=== PATIENT | female | born 1955 | race Two or more races ===

== ENCOUNTER 2017-01-11 11:00 | Inpatient (IN) | payer OTHER ==
[~2017-01-11] VITALS: Ht 160 cm; Wt 35.8 kg
--- NOTE | 2017-01-11 11:01 | NUR ---
GLF- 2 days ago; c/o left hip pain; denies KO. unable to ambulate past 2 days after fall. gowned pt. placed on monitor. awaiting md order
--- NOTE | 2017-01-11 11:24 | NUR ---
EKG IN PROGRESS
--- NOTE | 2017-01-11 11:24 | NUR ---
FOUR SLIDE MACHINE OPERATOR AT BEDSIDE
[2017-01-11 11:30] LABS: BASOPHILS % (AUTO) 0.8 % (0.0-2.0); EOSINOPHILS % (AUTO) 0.2 % (0.0-6.0); HEMATOCRIT 39 % (33-45); HEMOGLOBIN 12.8 g/dL (11.5-14.8); LYMPHOCYTES # (AUTO) 1.9 /CMM (0.8-4.8); LYMPHOCYTES % (AUTO) 37.2 % (20.0-44.0); MEAN CORPUSCULAR HEMOGLOBIN 29 PG (26.0-33.0); MEAN CORPUSCULAR HGB CONC 33 g/dl (31.0-36.0); MEAN CORPUSCULAR VOLUME 88 fL (82-100); MONOCYTES # (AUTO) 0.4 /CMM (0.1-1.30); MONOCYTES % (AUTO) 8.3 % (2.0-12.0); NEUTROPHILS # (AUTO) 2.9 /CMM (1.8-8.9); NEUTROPHILS % (AUTO) 53.5 % (43.0-81.0); PLATELET COUNT (AUTO) 420 /CMM (150-450); RDW COEFFICIENT OF VARIATION 13.6 (11.5-15.0); RED BLOOD CELL COUNT(AUTO) 4.43 MIL/uL (4.0-5.2); WHITE BLOOD COUNT (AUTO) 5.2 K/uL (4.3-11.0)
[2017-01-11] MEDS ORDERED: IV NS 0.9% 1,000 ML BAG IV ONE (11:30)
--- NOTE | 2017-01-11 11:31 | NUR ---
RFA #20 IV ACCESS. BLOOD SAMPLE COLLECTED SENT TO LAB
--- NOTE | 2017-01-11 11:31 | NUR ---
PT TAKEN TO CT VIA PREMA
--- NOTE | 2017-01-11 11:32 | NUR ---
XR TECH AT BEDSIDE.
--- NOTE | 2017-01-11 11:33 | NUR ---
PATIENT TAKEN TO CT VIA STRETCHER
--- NOTE | 2017-01-11 11:39 | NUR ---
PATIENT RETURNED FROM CT
[2017-01-11 11:40] LABS: CALCIUM, SERUM 9.3 mg/dL (8.5-10.1); CARBON DIOXIDE 28 mmol/L (21-32); CHLORIDE 100 mmol/L (98-107); GLUCOSE 79 mg/dL (74-106); POTASSIUM 4.7 mmol/L (3.5-5.1); SODIUM SERUM 138 mmol/L (136-145); UREA NITROGEN, BLOOD 25 mg/dL (7-18)
[2017-01-11 11:43] LABS: INR 0.98 (0.87-1.13); PROTHROMBIN TIME 10.2 SECS (9.5-12.7)
[2017-01-11 11:46] LABS: ALANINE AMINOTRANSFERASE 10 U/L (12-78); ALBUMIN 3.2 g/dL (3.4-5.0); ALKALINE PHOSPHATASE 58 U/L (46-116); ASPARTATE AMINOTRANSFERASE 28 U/L (15-37); BILIRUBIN,DIRECT 0.6 mg/dL (0.0-0.2); BILIRUBIN,TOTAL 1.2 mg/dL (0.2-1.0); LIPASE 67 U/L (73-393); TOTAL PROTEIN, SERUM 7.5 g/dL (6.4-8.2)
[2017-01-11 12:09] LABS: TROPONIN I < 0.017 ng/mL (0.00-0.056)
--- NOTE | 2017-01-11 12:10 | NUR ---
URINE SAMPLE COLLECTED SENT TO LAB
--- NOTE | 2017-01-11 12:11 | NUR ---
DR REDDY ON THE PHONE WITH THE GENERAL STUDIES PROGRAM CHAIR ORTHO ELSA ESCALERA
--- NOTE | 2017-01-11 12:17 | NUR ---
Superior pubic ramus
[2017-01-11 12:31] LABS: APPEARANCE,URINE Clear (CLEAR); BILIRUBIN,URINE SMALL (NEGATIVE); BLOOD, URINE Trace-lysed Ery/uL (NEGATIVE); COLOR,URINE Yellow (YELLOW); KETONES,URINE 15 (NEGATIVE); LEUKOCYTE ESTERASE ,URINE Small (NEGATIVE); NITRITE, URINE Negative (NEGATIVE); PH,URINE 5.5 (5.0-8.0); PROTEIN,URINE Negative (NEGATIVE); UGLUCOSE Negative (NEGATIVE); UROBILINOGEN,URINE 0.2 EU/dL (0.2)
[2017-01-11 12:44] LABS: BACTERIA,URINE Many /HPF (None Seen); RBC,URINE 0-2 /HPF (0-2); SQUAMOUS EPITHELIAL CELL,UR Moderate /HPF (None Seen)
[2017-01-11] MEDS ORDERED: IV NS 0.9% 1,000 ML IV PRN ×2 (13:14→14:00)
--- NOTE | 2017-01-11 13:15 | NUR ---
REPORT GIVEN TO RNVIKTOR. PATIENT TO BE ADMITT[place] [facility] [place] [facility]
[2017-01-11] MEDS ORDERED: DEXTROSE 50%-WATER 50 ML DISP.SYRIN IV PRN ×2 (13:30→14:00)
[2017-01-11] MEDS ORDERED: MORPHINE SULFATE INJ 2 MG/ML DISP.SYRIN IV PRN (13:30)
[2017-01-11] MEDS ORDERED: ONDANSETRON HCL/PF 4 MG/2 ML VIAL IVP PRN ×2 (13:30→14:00)
[2017-01-11] MEDS ORDERED: INSULIN REGULAR, HUMAN 100 UNIT/ML 3 ML VIAL SQ PRN (13:30)
[2017-01-11] MEDS ORDERED: Z GUARD REMEDY 2 OZ OINT TP PRN ×2 (13:30→14:00)
[2017-01-11] MEDS ORDERED: ZOLPIDEM TARTRATE 5 MG TABLET PO PRN ×2 (13:30→14:00)
[2017-01-11] MEDS ORDERED: ACETAMINOPHEN 325 MG TABLET PO PRN ×2 (13:30→14:00)
[2017-01-11] MEDS ORDERED: *INSULIN REGULAR(HUMULIN R)HUM 100 UNIT/ML VIAL SQ PRN (13:30)
[2017-01-11] MEDS ORDERED: MAG HYDROX/AL HYDROX/SIMETH 30 ML UDC PO PRN ×2 (13:30→14:00)
[2017-01-11] MEDS ORDERED: HYDROCODONE/APAP 5/325MG 1 EACH TABLET PO PRN (13:30)
[2017-01-11] MEDS ORDERED: MAGNESIUM HYDROXIDE 30 ML UDC PO PRN ×2 (13:30→14:00)
--- NOTE | 2017-01-11 13:45 | NUR ---
PATIENT TRANSPORTED TO [facility] FOR ADMISSION VIA STRETCHER, WITH EMT.
--- NOTE | 2017-01-11 13:46 | NUR ---
DR BLACKWELL CALLED. TRANSFERRED CALL TO DR REDDY
[2017-01-11 14:00] VITALS: BP 119/79
--- NOTE | 2017-01-11 14:00 | NUR ---
MS RN OPENING RECEIVED PATIENT A/OX4 FAROESE SPEAKING ONLY; FAMILY AT BEDSIDE. PATIENT DENIES ANY PAIN AT THIS TIME, NO SOB, DIFFICULTY BREATHING. PATIENT DENIES ANY HOME MEDICATIONS. MD AWARE OF ADMISSION. PATIENT REPOSITIONED FOR INCREASED COMFORT AND CALL LIGHT IN REACH, BED LOWERED AND LOCKED, RAILS UPX3 FOR SAFETY. WILL ROUND Q2H OR LESS PER NEEDS. DR ARELLANO/ AMANDA AWARE OF CONSULT ALREADY.
--- NOTE | 2017-01-11 15:00 | NUR ---
MS RN NOTES MD BLACKWELL AWARE OF PATIENT WEIGHT LOSS, N/V WITH FOOD AND DECREASED BM. PT HAS A HX OF ACCIDENTAL BLEACH CONSUMPTION AND SINCE THEN UNABLE TO TOLERATE MUCH OF A DIET.
[2017-01-11 16:00] VITALS: BP 116/84
--- NOTE | 2017-01-11 17:10 | NUR ---
MS RN NOTES BS LOW; NOT ENOUGH TO INITIATE PROTOCOL. INFORMED MD NO DIET ORDERED AND IF WE CAN GET IVF WITH SUGAR PATIENT DOES NOT HAVE GOOD ORAL INTAKE FOR THE LAST YEAR
--- NOTE | 2017-01-11 17:17 | NUR ---
MS RN NOTES PER MD [facility]
[2017-01-11] MEDS: BLOOD SUGAR DIAGNOSTIC 1 EACH STRIP VI SCH ×2 (17:24→22:49)
[2017-01-11] MEDS ORDERED: BLOOD SUGAR DIAGNOSTIC 1 EACH STRIP VI SCH (17:30)
--- NOTE | 2017-01-11 17:30 | NUR ---
MS RN NOTE DEXTROSE IV GIVEN PATIENT IS NOT EATING AND ON NS ONLY.
--- NOTE | 2017-01-11 17:40 | NUR ---
MS RN NOTES PER MD OK TO CHANGE IVF TO D51/2NS AT 75/HR
[2017-01-11] MEDS: IV D5/0.45 NACL 1,000 ML IV PRN (18:22)
--- NOTE | 2017-01-11 18:50 | NUR ---
MS RN CLOSING PATIENT STABLE NO COMPLICATIONS NO CHANGES. ALL DUE MEDS GIVEN AND ALL NEEDS MET. PATIENT DENIES PAIN STILL AT THIS TIME AND TOLERATING REPOSITIONING. CARE WILL BE ENDORSED TO RN FOR JOVANA. RAILS UPX3 FOR SAFETY AND BED LOWERED AND LOCKED.
--- NOTE | 2017-01-11 19:25 | NUR ---
MS/RN NOTES RECEIVED PT. LYING IN BED RESTING. PT. IS EASILY AROUSABLE TO NAME. AWAKE, ALERT AND ORIENTED X3. BREATHING EVEN AND UNLABORED ON ROOM AIR. NO SOB, RESPIRATORY DISTRESS OR COMPLAINTS OF PAIN NOTED AT THIS TIME. PT. WITH RIGHT FOREARM 20 GAUGE PERIPHERAL IV PRESENT, PATENT AND INTACT ADMINISTERING TO PT. D5 1/2 NS @ 75 ML/HR. BED IN LOWEST POSITION, CALL LIGHT WITHIN REACH, WILL CONTINUE TO MONITOR.
--- NOTE | 2017-01-11 19:55 | NUR ---
MS/RN NOTES RECEIVED CALL FROM ORTHO CONSULT MICHELLE MARTINEZ HE WILL COME AND SEE THE PT. TOMORROW MORNING. NEW ORDER: PT. WILL BE NPO AT MIDNIGHT. WILL CARRY OUT ORDERS. WILL CONTINUE TO MONITOR.
[2017-01-11 20:06] VITALS: BP 130/84
[2017-01-11] MEDS: *INSULIN REGULAR(HUMULIN R)HUM 100 UNIT/ML VIAL SQ PRN (22:47)
--- NOTE | 2017-01-11 22:57 | NUR ---
MS/RN NOTES GAVE REPORT TO FLACO CHO ENDORSED PT. TO HER. PT. IS LYING IN BED RESTING. BREATHING EVEN AND UNLABORED ON ROOM AIR. NO SOB, RESPIRATORY DISTRESS OR COMPLAINTS OF PAIN NOTED AT THIS TIME. PT. WITH RIGHT FOREARM 20 GAUGE PERIPHERAL IV PRESENT, PATENT AND INTACT ADMINISTERING TO PT. D5 1/2 NS @ 75 ML/HR. ALL PT. NEEDS MET. BED IN LOWEST POSITION, CALL LIGHT WITHIN REACH, ENDORSED PT. TO FLACO CHO FOR CONTINUITY OF CARE.
--- NOTE | 2017-01-11 23:00 | NUR ---
MS RN NOTE REPORT RECEIVED FROM FLACO GUTHRIE. PATIENT STABLE. WILL CONTINUE TO MONITOR.
[2017-01-12] MEDS: PANTOPRAZOLE 40 MG TABLET.DR PO SCH (06:25)
[2017-01-12] MEDS: BLOOD SUGAR DIAGNOSTIC 1 EACH STRIP VI SCH ×4 (06:30→21:24)
--- NOTE | 2017-01-12 06:30 | NUR ---
MS RN NOTE PATIENT STABLE. BLOOD SUGAR 180. NO COVERAGE GIVEN. PATIENT IS NPO PER LALI BRAMBILA. WILL ENDORSE TO DAY SHIFT FOR JOVANA.
[2017-01-12] MEDS: IV D5/0.45 NACL 1,000 ML IV PRN (07:01)
[2017-01-12] MEDS ORDERED: PANTOPRAZOLE 40 MG TABLET.DR PO SCH (07:30)
--- NOTE | 2017-01-12 07:37 | NUR ---
MS/RN NOTES PATIENT RESTING IN BED WITH NO S/S OF DISTRESS/DISCOMFORT. DENIES PAIN, N/V AT THIS TIME. RESPIRATIONS EVEN AND UNLABORED, ON ROOM AIR. IV TO RIGHT FOREARM 20 GAUGE INFUSING D5 1/2 NS @ 75 ML/HR. ALL PT, NPO STATUS FOR POSSIBLE LEFT HIP FX SURGERY. SAFETY MEASURES RENDERED. SITTER AT BEDSIDE. BED IN LOWEST POSITION, CALL LIGHT WITHIN REACH. WILL CONTINUE TO MONITOR.
--- NOTE | 2017-01-12 09:01 | NUR ---
WOUND CARE CONSULT PATIENT SEEN AND SKIN ASSESSED. RECOMMENDATIONS MADE AND DISCUSSED WITH NURSING STAFF, AND ORDERS PLACED. RECOMMEND Q2H TURNING, HEEL FLOATING AND SUPPORTING ELBOWS ON PILLOWS. REDNESS ON HEELS RESOLVED. CARE PLAN IS PLACED. PATIENT IS ON ISOFLEX AIR MATRESS. PATIENT AWAITING ORTHO CONSULT. WILL CONTINUE TO FOLLOW PATIENT NEEDED. Addendum: 01/12/17 at 0904 by ELÍAS CUMMINGS RN Amended: Links added. Addendum: 01/12/17 at 0951 by ELÍAS CUMMINGS RN PER REVIEW OF PHOTOS, SACRAL ABRASION POA.
--- NOTE | 2017-01-12 12:06 | NUR ---
ms/rn notes 16 fr candelario cath inserted successfully with 700 clear yellow urine draining well. secured candelario with stat lock and hung bag belong level. Patient states to feel comfortable with no indications of pain or discomfort. patient ready for surgery.
--- NOTE | 2017-01-12 12:34 | NUR ---
Social service consult requested by Kaye García due to pt. having frequent falls. Pt. is a 61 year old female who was admitted to [facility] for frequent falls. SW met with pt. bedside. FLACO Peres was bedside to assist in translation since pt. is Yakut speaking. Pt. informed SW she resides at home with her , her son and her daughter. Pt. states she has support at home. Pt. informed SW that this was the first time she fell and denies having frequent falls. Pt. sates she hit the table while going to the backyard and fell. Pt. has had her big toe amputated at [facility] about a year ago which might lead to her unsteady gait. Pt. was ambulatory prior to fracturing her leg. Currently no social service needs are required at this time. SW is available if needed.
--- NOTE | 2017-01-12 15:24 | NUR ---
MS/RN NOTES 1200 BLOOD SUGAR 157MG/DL. NO INSULIN COVERAGE REQUIRED D/T NPO STATUS WITH PENDING SX
--- NOTE | 2017-01-12 18:43 | NUR ---
MS/RN NOTES PATIENT RESTING IN BED COMFORTABLE. NO SIGNIFICANT CHANGES NOTED, PATENT APPEARS CALM AND COMFORTABLE. 1700 BLOOD SUGAR 93 NO COVERAGE NEEDED, PATIENT RESUMED WITH CONSISTENT CARB DIET, ATE 100 PERCENT OF MEAL. PATIENT DENIED ANY PAIN OR DISCOMFORT. NO ACUTE DISTRESS NOTED. CURRENTLY SLEEPING RESTFULLY. SAFETY MEASURES RENDERED, CALL LIGHT PLACED WITHIN REACH. WILL ENDORSE CARE TO CHAIR CANER FOR JOVANA
--- NOTE | 2017-01-12 19:15 | NUR ---
RN NOTES RECEIVED PT AWAKE, HOB ELEVATED, NO SOB, NOT IN DISTRESS, ON ROOM AIR AND TOLERATED WELL. PT ALERT AND ORIENTED X3, DENIES ANY PAIN AND DISCOMFORT AT THIS TIME. IV ACCESS ON RIGHT FORE ARM PATENT AND INTACT. JALLOH CATH INTACT WITH CLEAR URINE OUT PUT NOTED. KEPT BED IN THE LOWEST POSITION LOCKED, SIDE RAILS UP WITH CALL LIGHT WITH IN REACH. WILL CONTINUE TO MONITOR PT.
[2017-01-12] MEDS: *INSULIN REGULAR(HUMULIN R)HUM 100 UNIT/ML VIAL SQ PRN (21:25)
--- NOTE | 2017-01-12 21:25 | NUR ---
RN NOTES PTM VERBALIZED SHE HAVEN'T HAD BOWEL MOVEMENT X 3 DAYS, MILK OF MAGNESIA 30ML GIVEN PO AND TOLERATED WELL. WILL CONTINUE TO MONITOR PT.
--- NOTE | 2017-01-12 21:25 | NUR ---
RN NOTES BLOOD SUGAR CHECKED 106 MG/DL, NO INSULIN COVERAGE PER SLIDING SCALE. PT ALERT AND ORIENTED, DENIES ANY PAIN AND DISCOMFORT. NO SIGNS OF HYPOGLYCEMIA NOTED. WILL CONTINUE TO MONITOR PT.
[2017-01-12 22:00] VITALS: BP 113/79
[2017-01-13] MEDS: INSULIN REGULAR, HUMAN 100 UNIT/ML 3 ML VIAL SQ PRN ×2 (06:31→18:27)
[2017-01-13] MEDS: BLOOD SUGAR DIAGNOSTIC 1 EACH STRIP VI SCH ×4 (06:31→21:30)
--- NOTE | 2017-01-13 06:31 | NUR ---
RN NOTES BLOOD SUGAR CHECKED 121 MG/DL, NO INSULIN COVERAGE PER SLIDING SCALE.
--- NOTE | 2017-01-13 07:10 | NUR ---
RECEIVED PT IN BED, AWAKE AND ALERT. NO SOB OR COMPLAINTS OF PAIN. BED IS IN LOW AND LOCKED POSITION, SIDE RAILS UP X2, AND CALL LIGHT IS IN REACH. WILL CONTINUE TO MONITOR.
[2017-01-13] MEDS: PANTOPRAZOLE 40 MG TABLET.DR PO SCH (07:30)
--- NOTE | 2017-01-13 07:33 | NUR ---
RN NOTES PT AWAKE, HOB ELEVATED, NO SOB, NOT IN DISTRESS, ON ROOM AIR AND TOLERATED WELL. VITAL SIGNS STABLE, AFEBRILE. NO COMPLAIN OF PAIN. NO EPISODE OF NAUSEA AND VOMITING. KEPT PT ON NPO FOR SCHEDULED SURGERY TODAY. ALL NEEDS ATTENDED. ENDORSED TO MORNING RN FOR CONTINUITY OF CARE.
[2017-01-13 08:00] VITALS: BP 130/79
[2017-01-13 08:19] LABS: BASOPHILS % (AUTO) 0.5 % (0.0-2.0); EOSINOPHILS % (AUTO) 0.5 % (0.0-6.0); HEMATOCRIT 33 % (33-45); HEMOGLOBIN 11.3 g/dL (11.5-14.8); LYMPHOCYTES # (AUTO) 1.4 /CMM (0.8-4.8); LYMPHOCYTES % (AUTO) 35.8 % (20.0-44.0); MEAN CORPUSCULAR HEMOGLOBIN 30 PG (26.0-33.0); MEAN CORPUSCULAR HGB CONC 34 g/dl (31.0-36.0); MEAN CORPUSCULAR VOLUME 87 fL (82-100); MONOCYTES # (AUTO) 0.4 /CMM (0.1-1.30); MONOCYTES % (AUTO) 9.8 % (2.0-12.0); NEUTROPHILS % (AUTO) 53.4 % (43.0-81.0); PLATELET COUNT (AUTO) 278 /CMM (150-450); RED BLOOD CELL COUNT(AUTO) 3.83 MIL/uL (4.0-5.2); WHITE BLOOD COUNT (AUTO) 3.8 K/uL (4.3-11.0)
[2017-01-13 09:01] LABS: CALCIUM, SERUM 8.1 mg/dL (8.5-10.1); CREATININE 0.8 mg/dL (0.6-1.3); POTASSIUM 3.8 mmol/L (3.5-5.1)
[2017-01-13] MEDS ORDERED: BACITRACIN 50000 UNITS/VIAL ONE (11:44)
[2017-01-13] MEDS ORDERED: MIDAZOLAM HCL 2 MG/2ML VIAL ONE (12:08)
[2017-01-13] MEDS ORDERED: FENTANYL PF 100MCG/2ML AMPUL ONE (12:08)
[2017-01-13] MEDS ORDERED: SUCCINYLCHOLINE CHLORIDE 20 MG/ML VIAL ONE (12:09)
[2017-01-13] MEDS ORDERED: METOCLOPRAMIDE HCL 10 MG/2 ML VIAL ONE (12:09)
[2017-01-13] MEDS ORDERED: BUPIVACAINE 0.5 % PF 150 MG/30 ML VIAL ONE (12:46)
[2017-01-13 14:15] VITALS: BP 110/82
--- NOTE | 2017-01-13 14:40 | NUR ---
ACCUCHECK WAS NOT DONE BECAUSE PT WAS IN THE OR. ACCU-CHECK DONE IN THE OR AT 1330, LEVEL AT 101. NO NEED FOR COVERAGE. PT IS BACK ON UNIT POST-OP IN STABLE CONDITION.
[2017-01-13 15:10] VITALS: BP 106/77
[2017-01-13 16:00] VITALS: BP_SYST 108; BP_SYST 130; BP_DIAS 72; BP_DIAS 77; BP_DIAS 79
[2017-01-13] MEDS: HYDROCODONE/APAP 5/325MG 1 EACH TABLET PO PRN (16:50)
[2017-01-13] MEDS: IV D5/0.45 NACL 1,000 ML IV PRN (17:22)
--- NOTE | 2017-01-13 18:38 | NUR ---
PT IS AWAKE IN BED IN SEMI FOWLERS POSITION. PT HAS EVEN RESPIRATIONS AND NO SOB ON RA, SATING 99. PT WAS GIVEN NORCO AND ZOFRAN AND CURRENTLY STATES NO PAIN OR NAUSEA. IV ON RFA INTACT AND PATENT, RUNNING D5 1/2 NS AT 125 ML/HR. HIP SURGERY DRESSING IS CLEAN AND DRY, ICE APPLIED TO AREA. BED IS IN LOW AND LOCKED POSITION, SIDE RAILS UP X2, CALL LIGHT IS IN REACH, AND SITTER IS AT BEDSIDE. WILL ENDORSE TO OPTICAL INSTRUMENT ASSEMBLER RN FOR CONTINUITY OF CARE.
--- NOTE | 2017-01-13 19:20 | NUR ---
RN NOTES RECEIVED PT AWAKE, HOB ELEVATED, NO SOB, NOT IN DISTRESS, ON ROOM AIR AND TOLERATED WELL. PT ALERT AND ORIENTED X3, DENIES PAIN, NAUSEA AND VOMITING. IV ACCESS ON RIGHT FORE ARM PATENT AND INTACT. PT IS S/P LEFT HIP ORIF, DRESSING INTACT, DRY AND CLEAN. JALLOH CATH INTACT WITH CLEAR URINE OUT PUT NOTED. KEPT BED IN THE LOWEST POSITION LOCKED, SIDE RAILS UP WITH CALL LIGHT WITH IN REACH. WILL CONTINUE TO MONITOR PT.
[2017-01-13] MEDS: ANCEF 1 GM/50 ML D5W IV SCH ×2 (21:23)
[2017-01-13] MEDS: *INSULIN REGULAR(HUMULIN R)HUM 100 UNIT/ML VIAL SQ PRN (21:33)
--- NOTE | 2017-01-13 21:33 | NUR ---
RN NOTES BLOOD SUGAR CHECKED 202 MG/DL, 4 UNITS OG REGULAR INSULIN GIVEN SUBCU. WILL CONTINUE TO MONITOR.
[2017-01-13 22:00] VITALS: BP 103/77
[2017-01-14] MEDS: IV D5/0.45 NACL 1,000 ML IV PRN ×2 (02:14→17:19)
[2017-01-14] MEDS: ANCEF 1 GM/50 ML D5W IV SCH ×4 (05:26→12:06)
[2017-01-14] MEDS: BLOOD SUGAR DIAGNOSTIC 1 EACH STRIP VI SCH ×4 (06:38→21:37)
--- NOTE | 2017-01-14 06:38 | NUR ---
RN NOTES BLOOD SUGAR CHECKED 90 MG/DL, NO INSULIN COVERAGE PER SLIDING SCALE. PT ALERT , DENIES ANY DISCOMFORT, NO SIGNS OF HYPOGLYCEMIA NOTED. WILL CONTINUE TO MONITOR PT.
[2017-01-14] MEDS: INSULIN REGULAR, HUMAN 100 UNIT/ML 3 ML VIAL SQ PRN (06:39)
--- NOTE | 2017-01-14 07:10 | NUR ---
RN NOTES PT AWAKE, HOB ELEVATED, NO SOB, NOT IN DISTRESS, ON ROOM AIR AND TOLERATED WELL. VITAL SIGNS STABLE, AFEBRILE. NO COMPLAIN OF PAIN. NO EPISODE OF NAUSEA AND VOMITING. COMPLAIN ONLY WHEN REPOSITIONED. ALL DUE MEDS GIVEN. . ALL NEEDS ATTENDED. ENDORSED TO MORNING RN FOR CONTINUITY OF CARE.
--- NOTE | 2017-01-14 07:31 | NUR ---
RN NOTES RECEIVED PT IN BED, PT ASLEEP. HOB ELEVATED. NO S/S OF PAIN, DISTRESS OR SOB. PT HAS A JALLOH CATHETER. IV ACCESS LOCATED ON R AC 22G, RUNNING D5 1/2 NS AT 125 ML/HR. SAFETY MEASURES IN PLACE. CALL LIGHT WITHIN REACH. WILL CONTINUE TO MONITOR.
[2017-01-14] MEDS: PANTOPRAZOLE 40 MG TABLET.DR PO SCH (08:05)
[2017-01-14] MEDS: ENOXAPARIN SODIUM 40 MG/0.4 ML DISP.SYRIN SQ SCH (08:06)
[2017-01-14] MEDS: MORPHINE SULFATE INJ 2 MG/ML DISP.SYRIN IV PRN ×2 (08:35→21:21)
[2017-01-14 09:30] LABS: BASOPHILS % (AUTO) 0.2 % (0.0-2.0); EOSINOPHILS % (AUTO) 0.2 % (0.0-6.0); HEMATOCRIT 29 % (33-45); HEMOGLOBIN 9.6 g/dL (11.5-14.8); LYMPHOCYTES # (AUTO) 2.1 /CMM (0.8-4.8); LYMPHOCYTES % (AUTO) 28.5 % (20.0-44.0); MEAN CORPUSCULAR HEMOGLOBIN 30 PG (26.0-33.0); MEAN CORPUSCULAR HGB CONC 33 g/dl (31.0-36.0); MEAN CORPUSCULAR VOLUME 88 fL (82-100); MONOCYTES # (AUTO) 0.6 /CMM (0.1-1.30); MONOCYTES % (AUTO) 7.5 % (2.0-12.0); NEUTROPHILS # (AUTO) 4.8 /CMM (1.8-8.9); NEUTROPHILS % (AUTO) 63.6 % (43.0-81.0); PLATELET COUNT (AUTO) 356 /CMM (150-450); RED BLOOD CELL COUNT(AUTO) 3.24 MIL/uL (4.0-5.2); WHITE BLOOD COUNT (AUTO) 7.5 K/uL (4.3-11.0)
[2017-01-14 09:37] LABS: CREATININE 0.9 mg/dL (0.6-1.3); POTASSIUM 4.1 mmol/L (3.5-5.1)
[2017-01-14 09:51] LABS: ALBUMIN 2.6 g/dL (3.4-5.0); BILIRUBIN,TOTAL 0.4 mg/dL (0.2-1.0); MAGNESIUM 1.7 mg/dL (1.8-2.4); PHOSPHORUS 2.4 mg/dL (2.5-4.9); TOTAL PROTEIN, SERUM 6.1 g/dL (6.4-8.2)
--- NOTE | 2017-01-14 10:38 | NUR ---
RN NOTES PT EVAL COMPLETED. RECOMMENDATION OF PT TRANSFER BED TO CHAIR WITH ASSIST TWICE DAILY.
[2017-01-14] MEDS ORDERED: K PHOS NEUTRAL 250 MG TABLET PO ONE ×2 (12:00→12:30)
[2017-01-14] MEDS: Magnesium 1GM/D5W 100ML PREMIX 100 ML IV SCH ×2 (17:08→18:27)
--- NOTE | 2017-01-14 18:38 | NUR ---
RN CLOSING NOTE PT AWAKE AND ALERT IN BED. FAMILY IS BEDSIDE. NO S/S OF DISTRESS OR PAIN. ALL DUE MEDS GIVEN. ALL PT NEEDS MET. SAFETY MEASURES IN PLACE, CALL LIGHT WITHIN REACH. WILL ENDORSE TO ASSEMBLER FINGER BUFFS FOR JOVANA..........................
[2017-01-14 20:00] VITALS: BP 97/64
[2017-01-14] MEDS: *INSULIN REGULAR(HUMULIN R)HUM 100 UNIT/ML VIAL SQ PRN (21:36)
[2017-01-15] MEDS: IV D5/0.45 NACL 1,000 ML IV PRN (04:49)
[2017-01-15] MEDS: BLOOD SUGAR DIAGNOSTIC 1 EACH STRIP VI SCH ×4 (06:25→21:36)
--- NOTE | 2017-01-15 06:49 | NUR ---
MS RN NOTES AWAKE & RESPONSIVE. NOT IN ANY DISTRESS. NO SOB NOTED. DENIES ANY PAIN OR DISCOMFORT AT THIS TIME. WITH IVF INFUSING WELL. AM CARE DONE. MONITORED ACCORDINGLY. CALL LIGHT WITHIN REACH. BED IN LOWEST POSITION. SR UP X3 WITH BED ALARM ON FOR SAFETY . CALL LIGHT WITHIN REACH. BED IN LOWEST POSITION. WILL ENDORSE TO NEXT SHIFT.
[2017-01-15 07:12] LABS: *SPE ALBUMIN 2.8 g/dL (2.9-4.4); *SPE ALPHA-1-GLOBULIN 0.3 g/dL (0.0-0.4); *SPE ALPHA-2-GLOBULIN 0.8 g/dL (0.4-1.0); *SPE BETA GLOBULIN 0.7 g/dL (0.7-1.3); *SPE GLOBULIN, TOTAL 2.9 g/dL (2.2-3.9); *SPE M-SPIKE Not Observed g/dL (Not Observed); *SPE PROTEIN TOTAL 5.7 g/dL (6.0-8.5); *SPEGAMMA GLOBULIN 1.1 g/dL (0.4-1.8)
[2017-01-15 07:20] LABS: CALCIUM, SERUM 7.7 mg/dL (8.5-10.1); CREATININE 0.7 mg/dL (0.6-1.3); MAGNESIUM 2.1 mg/dL (1.8-2.4)
[2017-01-15 07:30] VITALS: BP 110/60
--- NOTE | 2017-01-15 07:30 | NUR ---
MS/RN Patient received Patient received from plant operator/shift supervisor. Appears comfortable, in no distress. All needs attended, call light within reach, side rails X3 in upright position, brakes locked. All questions and concerns addressed. Will continue to monitor and ensure safety.
[2017-01-15 07:41] LABS: BASOPHILS % (AUTO) 0.3 % (0.0-2.0); EOSINOPHILS % (AUTO) 0.2 % (0.0-6.0); HEMATOCRIT 24 % (33-45); HEMOGLOBIN 8.1 g/dL (11.5-14.8); LYMPHOCYTES # (AUTO) 1.2 /CMM (0.8-4.8); LYMPHOCYTES % (AUTO) 23.3 % (20.0-44.0); MEAN CORPUSCULAR HEMOGLOBIN 30 PG (26.0-33.0); MEAN CORPUSCULAR HGB CONC 33 g/dl (31.0-36.0); MEAN CORPUSCULAR VOLUME 89 fL (82-100); MONOCYTES # (AUTO) 0.4 /CMM (0.1-1.30); MONOCYTES % (AUTO) 8.9 % (2.0-12.0); NEUTROPHILS # (AUTO) 3.3 /CMM (1.8-8.9); NEUTROPHILS % (AUTO) 67.3 % (43.0-81.0); PLATELET COUNT (AUTO) 244 /CMM (150-450); RDW COEFFICIENT OF VARIATION 14.4 (11.5-15.0); RED BLOOD CELL COUNT(AUTO) 2.74 MIL/uL (4.0-5.2)
[2017-01-15 07:48] LABS: ALBUMIN 2.1 g/dL (3.4-5.0); BILIRUBIN,DIRECT 0.1 mg/dL (0.0-0.2); BILIRUBIN,TOTAL 0.4 mg/dL (0.2-1.0); TOTAL PROTEIN, SERUM 5.4 g/dL (6.4-8.2)
[2017-01-15 08:00] VITALS: BP 112/69
[2017-01-15] MEDS: PANTOPRAZOLE 40 MG TABLET.DR PO SCH (08:34)
[2017-01-15] MEDS: ENOXAPARIN SODIUM 40 MG/0.4 ML DISP.SYRIN SQ SCH (08:35)
--- NOTE | 2017-01-15 09:00 | NUR ---
MS/RN Medications Morning medications administered as ordered.
--- NOTE | 2017-01-15 09:30 | NUR ---
MS/RN S/B Hal Prasad FISH AND WILDLIFE BIOLOGIST Seen by FISH AND WILDLIFE BIOLOGIST - to remain in the hospital for one more day. Labs ordered for tomorrow, IV fluids heplocked.
[2017-01-15] MEDS: HYDROCODONE/APAP 5/325MG 1 EACH TABLET PO PRN (10:13)
--- NOTE | 2017-01-15 11:39 | NUR ---
MS/RN S/B PT Seen by PT - able to walk short distance using FWW.
[2017-01-15 16:00] VITALS: BP 116/62
--- NOTE | 2017-01-15 17:30 | NUR ---
MS/yard truck driver Received call from pillowcase cleaner Montserrat. Patient to be transfer to [facility] today. Inform her that ENERGY TECHNICIAN Osmar had stated that patient would be discharged tomorrow as hemiglobin was boarder line as to needing transfusion (). Informed that CBC was ordered for tomorrow at [facility] and blood could be given there if needed. [facility] called and nursing report given, spoke with George. Exit care prepared, chart copied.
--- NOTE | 2017-01-15 18:54 | NUR ---
MS/RN End note Awaiting transport to take patient to [facility].
--- NOTE | 2017-01-15 19:10 | NUR ---
MS RN NOTES RECEIVED PT IN BED, AWAKE, A/O X 4. VERBALLY RESPONSIVE. NO DISTRESS, NO SOB NOTED AT THIS TIME. RESPIRATION IS EVEN AND UNLABORED. ABDOMEN IS SOFT AND NON DISTENDED. DENIES ANY PAIN OR DISCOMFORT AT THIS TIME. NO S/S OF HYPO/ HYPERGLYCEMIA NOTED. PT FOR DISCHARGE TONIGHT IV HL WAS REMOVED BY DAY SHIFT RN. EXIT CARE COMPLETED BY DAY SHIFT RN. ALL NEEDS ATTENDED AND MET. SAFETY PRECAUTIONS OBSERVED. AWAITING FOR TRANSPORTATION.
--- NOTE | 2017-01-15 19:10 | NUR ---
MS RN NOTES RECEIVED PT IN BED, AWAKE, A/O X 4. VERBALLY RESPONSIVE. NO DISTRESS, NO SOB NOTED AT THIS TIME. RESPIRATION IS EVEN AND UNLABORED. ABDOMEN IS SOFT AND NON DISTENDED. DENIES ANY PAIN OR DISCOMFORT AT THIS TIME. NO S/S OF HYPO/ HYPERGLYCEMIA NOTED. PT FOR DISCHARGE TONIGHT , AWAITING FOR TRANSPORTATION , IV HL WAS REMOVED BY DAY SHIFT RN. EXIT CARE COMPLETED BY DAY SHIFT RN.
--- NOTE | 2017-01-15 20:55 | NUR ---
SPOKE WITH [place] HOT SEALING MACHINE OPERATOR. TRANSPORTATION WAS SET UP BY PT'S INSURANCE, MANUFACTURING GROUP LEADER SUPPOSED TO BE AT 7PM. STILL AWAITING FOR TRANSPORTATION. PT REMAINS STABLE. ALL NEEDS ATTENDED . WILL CONT TO MONITOR.
--- NOTE | 2017-01-15 21:20 | NUR ---
[facility] ARRIVED. MARTINEZ, SAS DEVELOPER AWARE. SPOKE WITH WALKER, FROM [facility] STILL OK FOR THEM TO ACCEPT THE PT.
--- NOTE | 2017-01-15 21:41 | NUR ---
PT WAS PICKED UP BY [facility] WITH 2 CREWS. PT IN STABLE CONDITION. PAPER WORKS AND PT BELONGINGS SENT WITH THE PATIENT. FLACO SEE CHARGE NURSE AWARE.
== END 2017-01-15 21:45 | DRG 308 ==
LOC: ER 11:02 → MED 13:58
PROVIDERS: ADMIT Internal Medicine; ATTEND Internal Medicine
PROC: 0QS706Z Reposition Left Upper Femur with Intramedullary Internal Fixation Device, Open Approach (ICD-10-PCS; principal; 2017-01-13 12:44)
DX: S72.142A Displaced intertrochanteric fracture of left femur, initial encounter for closed fracture (principal); N17.0 Acute kidney failure with tubular necrosis; R64 Cachexia; E43 Unspecified severe protein-calorie malnutrition; E11.51 Type 2 diabetes mellitus with diabetic peripheral angiopathy without gangrene; K90.9 Intestinal malabsorption, unspecified; W01.0XXA Fall on same level from slipping, tripping and stumbling without subsequent striking against object, initial encounter; D64.9 Anemia, unspecified; F41.9 Anxiety disorder, unspecified; I10 Essential (primary) hypertension; Z87.891 Personal history of nicotine dependence; Z91.5 Personal history of self-harm; F32.9 Major depressive disorder, single episode, unspecified; Z68.1 Body mass index [BMI] 19.9 or less, adult; Z89.411 Acquired absence of right great toe; E80.6 Other disorders of bilirubin metabolism; Y92.009 Unspecified place in unspecified non-institutional (private) residence as the place of occurrence of the external cause; M81.0 Age-related osteoporosis without current pathological fracture
CPT/HCPCS: 36415; 71010-TC; 73020; 73700-TC; 80048-TC; 80053-TC; 80076-TC; 81000-TC; 82962-TC; 83690-TC; 83735-TC; 84100-TC; 84155; 84165; 84484-TC; 85025-TC; 85730-TC; 86850-TC; 87081-TC; 87086-TC; 93307-TC; 97001-TC; 97116-TC; 97530-TC; A4606; A6209; A6402; C1713; J0330; J0690; J1650; J1815; J2250; J2270; J2405; J2704; J2765; J3010; J3475; J3490; J7030; J7060; Z7610

== ENCOUNTER 2017-06-05 21:08 | Inpatient (IN) | payer OTHER ==
[~2017-06-05] VITALS: Ht 157.5 cm; Wt 39.0 kg
--- NOTE | 2017-06-05 21:15 | NUR ---
Pt BIBRA FROM HOME. PER FAMILY HAS NOT BEEN EATING, SHOWING DECREASE OF APPETITE. BECOMING LESS VERBAL. CALLED IN DUE TO Pt's ABDOMINAL DISTENTION. Pt IS VERBAL, BUT SLOW TO RESPONSE. Pt GOWNED, WAITING IN ER BED 5.
[2017-06-05] MEDS ORDERED: IV NS 0.9% 1,000 ML BAG IV ONE (21:30)
[2017-06-05 21:34] LABS: BASOPHILS % (AUTO) 0.2 % (0.0-2.0); HEMATOCRIT 38 % (33-45); HEMOGLOBIN 12.6 g/dL (11.5-14.8); LYMPHOCYTES # (AUTO) 0.6 /CMM (0.8-4.8); LYMPHOCYTES % (AUTO) 10.8 % (20.0-44.0); MEAN CORPUSCULAR HEMOGLOBIN 28 PG (26.0-33.0); MEAN CORPUSCULAR HGB CONC 33 g/dl (31.0-36.0); MEAN CORPUSCULAR VOLUME 83 fL (82-100); MONOCYTES # (AUTO) 0.5 /CMM (0.1-1.30); MONOCYTES % (AUTO) 9.7 % (2.0-12.0); NEUTROPHILS % (AUTO) 79.3 % (43.0-81.0); PLATELET COUNT (AUTO) 451 /CMM (150-450); RED BLOOD CELL COUNT(AUTO) 4.56 MIL/uL (4.0-5.2); WHITE BLOOD COUNT (AUTO) 5.1 K/uL (4.3-11.0)
--- NOTE | 2017-06-05 21:39 | NUR ---
CXR BEING DONE AT BEDSIDE
[2017-06-05 21:47] LABS: INR 0.97 (0.87-1.13); PROTHROMBIN TIME 10.1 SECS (9.5-12.7)
[2017-06-05 21:55] LABS: SERUM AMMONIA < 10 umol/L (11-32)
[2017-06-05 22:04] LABS: TROPONIN I 0.023 ng/mL (0.00-0.056)
[2017-06-05 22:07] LABS: ALANINE AMINOTRANSFERASE 8 U/L (12-78); ALBUMIN 3.3 g/dL (3.4-5.0); ALKALINE PHOSPHATASE 60 U/L (46-116); ASPARTATE AMINOTRANSFERASE 15 U/L (15-37); BILIRUBIN,DIRECT 0.2 mg/dL (0.0-0.2); BILIRUBIN,TOTAL 0.7 mg/dL (0.2-1.0); CALCIUM, SERUM 10.4 mg/dL (8.5-10.1); CARBON DIOXIDE 23 mmol/L (21-32); CHLORIDE 102 mmol/L (98-107); CREATININE 1.7 mg/dL (0.6-1.3); GLUCOSE 157 mg/dL (74-106); LIPASE 57 U/L (73-393); POTASSIUM 4.1 mmol/L (3.5-5.1); SODIUM SERUM 144 mmol/L (136-145); TOTAL PROTEIN, SERUM 7.9 g/dL (6.4-8.2); UREA NITROGEN, BLOOD 50 mg/dL (7-18)
[2017-06-05] MEDS ORDERED: IV NS 0.9% 1,000 ML IV ONE (22:30)
[2017-06-05] MEDS ORDERED: PIPERACILLIN /TAZOBACTAM 3.375 G in IV D5W 50 ML IV ONE (22:30)
[2017-06-05] MEDS ORDERED: PIPERACILLIN /TAZOBACTAM 3.375 G VIAL IV ONE (22:44)
--- NOTE | 2017-06-05 22:45 | NUR ---
KAIELY CATHETER INSERTED. URINE DARK TEA COLORED. APPROX 2L OUTPUT.
[2017-06-05] MEDS ORDERED: IV NS 0.9% 1,000 ML IV PRN (22:51)
[2017-06-05] MEDS ORDERED: MAG HYDROX/AL HYDROX/SIMETH 30 ML UDC PO PRN (23:00)
[2017-06-05] MEDS ORDERED: ACETAMINOPHEN 325 MG TABLET PO PRN (23:00)
[2017-06-05] MEDS ORDERED: ONDANSETRON HCL/PF 4 MG/2 ML VIAL IVP PRN (23:00)
[2017-06-05] MEDS ORDERED: Z GUARD REMEDY 2 OZ OINT TP PRN (23:00)
[2017-06-05] MEDS ORDERED: HYDROCODONE/APAP 5/325MG 1 EACH TABLET PO PRN (23:00)
[2017-06-05] MEDS ORDERED: MAGNESIUM HYDROXIDE 30 ML UDC PO PRN (23:00)
[2017-06-05] MEDS ORDERED: CEFTRIAXONE 1 G in IV D5W 50 ML IV SCH (23:00)
--- NOTE | 2017-06-05 23:28 | NUR ---
REPORT GIVEN TO 3WEST RN GLENNA. WILL TRANSPORT TO FLOOR VIA ACLS PROTOCOL.
[2017-06-05] MEDS ORDERED: MINERAL OIL 133 ML (PYXIS) 1 EA ENEMA RC ONE ×2 (23:30→23:47)
[2017-06-05] MEDS: DOCUSATE SODIUM 100 MG CAPSULE PO SCH (23:30)
[2017-06-05 23:45] VITALS: BP 95/55
--- NOTE | 2017-06-05 23:45 | NUR ---
CABLE TESTERS HELPER NOTES RECEIVED PT FROM ER VIA STRETCHER, TRANSFERRED TO BED SAFELY. PT IS AWAKE, A/O X 1, VERBALLY RESPONSIVE BUT WITH SLOW RESPONSE. NO DISTRESS, NO SOB NOTED. RESPIRATION IS EVEN AND UNLABORED. NO S/S OF HYPO/ HYPERGLYCEMIA NOTED. BODY CHECK DONE. IV SITE ON LAC INTACT AND PATENT, NO S/S OF INFILTRATION NOTED. ALL NEEDS ATTENDED AND MET. KEPT COMFORTABLE. CALL LIGHT WITHIN REACH. WILL CONT TO MONITOR.
[2017-06-05] MEDS ORDERED: DOCUSATE SODIUM 100 MG CAPSULE PO ONE (23:48)
[2017-06-05 23:51] LABS: APPEARANCE,URINE SL CLOUDY (CLEAR); BILIRUBIN,URINE 2+ (NEGATIVE); BLOOD, URINE TRACE-INTA Ery/uL (NEGATIVE); COLOR,URINE AMBER (YELLOW); KETONES,URINE NEGATIVE (NEGATIVE); LEUKOCYTE ESTERASE ,URINE NEGATIVE (NEGATIVE); NITRITE, URINE POSITIVE (NEGATIVE); PROTEIN,URINE NEGATIVE (NEGATIVE); UGLUCOSE NEGATIVE (NEGATIVE); UROBILINOGEN,URINE 0.2 EU/dL (0.2)
--- NOTE | 2017-06-06 00:01 | NUR ---
BALLOON SELLER NOTES PT SINUS TACHY 108 WITH 1ST DEGREE AV BLOCK ON TELE MONITOR. PT DENIES ANY PAIN OR DISCOMFORT AT THIS TIME. WILL CONT TO MONITOR.
[2017-06-06 00:03] LABS: BACTERIA,URINE 1+ /HPF (None Seen); SQUAMOUS EPITHELIAL CELL,UR Few /HPF (None Seen); WBC,URINE 0-2 /HPF (0-3)
[2017-06-06 00:04] LABS: HYALINE CASTS, URINE Few /LPF (None Seen); MUCUS,URINE Few /LPF (None Seen)
--- NOTE | 2017-06-06 00:23 | NUR ---
PT REFUSED COLACE CAPSULE, RISK AND BENEFITS EXPLAINED , PT STILL REFUSED. MEDICATION WAS OPENED AND WASTED, WITNESSED BY FLACO WARNER.
[2017-06-06 04:00] VITALS: BP 94/60
[2017-06-06 04:12] VITALS: BP 94/60
[2017-06-06] MEDS ORDERED: PIPERACILLIN /TAZOBACTAM 3.375 G VIAL IV ONE (05:31)
[2017-06-06] MEDS: PIPERACILLIN /TAZOBACTAM 3.375 G in IV D5W 50 ML IV SCH ×3 (05:44)
[2017-06-06 06:31] LABS: BASOPHILS % (AUTO) 0.1 % (0.0-2.0); HEMATOCRIT 34 % (33-45); HEMOGLOBIN 11.4 g/dL (11.5-14.8); LYMPHOCYTES # (AUTO) 0.3 /CMM (0.8-4.8); LYMPHOCYTES % (AUTO) 5.7 % (20.0-44.0); MEAN CORPUSCULAR HEMOGLOBIN 28 PG (26.0-33.0); MEAN CORPUSCULAR HGB CONC 33 g/dl (31.0-36.0); MEAN CORPUSCULAR VOLUME 84 fL (82-100); MONOCYTES # (AUTO) 0.1 /CMM (0.1-1.30); MONOCYTES % (AUTO) 2.3 % (2.0-12.0); NEUTROPHILS # (AUTO) 4.9 /CMM (1.8-8.9); NEUTROPHILS % (AUTO) 91.9 % (43.0-81.0); PLATELET COUNT (AUTO) 196 /CMM (150-450); RED BLOOD CELL COUNT(AUTO) 4.09 MIL/uL (4.0-5.2); WHITE BLOOD COUNT (AUTO) 5.3 K/uL (4.3-11.0)
[2017-06-06 06:40] LABS: CREATININE 1.4 mg/dL (0.6-1.3); MAGNESIUM 1.8 mg/dL (1.8-2.4); PHOSPHORUS 3.3 mg/dL (2.5-4.9); POTASSIUM 3.5 mmol/L (3.5-5.1)
--- NOTE | 2017-06-06 06:53 | NUR ---
DREDGE PIPEMAN NOTES PT IS RESTING COMFORTABLY AT THIS TIME, AROUSES EASILY, VERBALLY RESPONSIVE. NO DISTRESS, NO SOB NOTED. RESPIRATION IS EVEN AND UNLABORED. NO S/S OF HYPO/ HYPERGLYCEMIA NOTED. IV SITE ON LAC INTACT AND PATENT, NO S/S OF INFILTRATION NOTED. IVF INFUSING WELL. FC S INTACT AND PATENT DRAINING WITH TEA COLORED URINE. ALL NEEDS ATTENDED AND MET. KEPT COMFORTABLE. CALL LIGHT WITHIN REACH. WILL ENDORSE TO NEXT SHIFT FOR JOVANA.
[2017-06-06 06:54] LABS: THYROID STIMULATING HORMONE 1.225 uIU/mL (0.358-3.74)
[2017-06-06 07:14] VITALS: BP 93/62
[2017-06-06 08:30] LABS: BAND % (MANUAL) 35 % (0.0-5.0); LYMPHOCYTES % (MANUAL) 9 % (16-48); MONOCYTES % (MANUAL) 8 % (0-11.0); NEUTROPHILS % (MANUAL) 48 (42-76)
--- NOTE | 2017-06-06 08:45 | NUR ---
DANCE HALL HOST/HOSTESS/MED RECON CALLED AND SPOKE WITH Evelin FABIAN (SPOUSE). PER SPOUSE, PATIENT DOES NOT TAKE ANY MEDICATION, NOT EVEN FOR DM. PRIMARY NURSE JUAN LOVING.
[2017-06-06] MEDS: DOCUSATE SODIUM 100 MG CAPSULE PO SCH ×2 (09:05→17:41)
--- NOTE | 2017-06-06 11:40 | NUR ---
REFUSING DVT PUMPS.DTR. IN TO VISIT.WITH COAXING TOOK AM COLACE AND NOT EATING.BRYANT MOON IN AND PSYCH EVAL WELL GI CONSULT ORDERED.SHAILA LIMA FOR DR. BOSTON TO BE IN.
--- NOTE | 2017-06-06 12:00 | NUR ---
BRYANT MOON NP QUESTIONED REGARDING CHEM.PROPHYLAXIS FOR VTE.STATES NO PER ENRIQUE HDZ.
[2017-06-06] MEDS: PIPERACILLIN /TAZOBACTAM 2.25 G in IV D5W 50 ML IV SCH ×3 (12:38→23:24)
[2017-06-06 16:00] VITALS: BP_SYST 94; BP_SYST 95; BP_DIAS 58
--- NOTE | 2017-06-06 18:00 | NUR ---
SHAILA LIMA FOR IN TO SEE PT.
[2017-06-06 20:00] VITALS: BP 102/52
--- NOTE | 2017-06-06 20:00 | NUR ---
RN NOTES RECEIVED PATIENT IN BED, ALERT X1, CALM AT THIS TIME, NON-VERBAL, SPEAKS PASHTO, NO SOB, ON 2LPM VIA NC, SPO2 99%, DENIES ANY PAIN AT THIS TIME, LAC PERIPHERAL LINE IS PATENT AND INFUSING WELL. JALLOH CATHETER DRAINING WELL OF DARK AND YELLOW URINE. REFUSED DVT PUMP. KEPT SAFE AND COMFORTABLE, CALL LIGHT WITHIN REACH.
[2017-06-06] MEDS ORDERED: MIRTAZAPINE 15 MG TABLET ONE (21:16)
[2017-06-06] MEDS: IV NS 0.9% 1,000 ML IV PRN (21:18)
[2017-06-06] MEDS: MIRTAZAPINE 15 MG TABLET PO SCH ×3 (21:18→22:00)
--- NOTE | 2017-06-06 22:35 | NUR ---
RN NOTES SWAGING MACHINE OPERATOR DAILEY NOTIFIED PATIENT NOT EATING, ON NS @ 75 CC/HR, NO NEW ORDER. PER SWAGING MACHINE OPERATOR KEEP IV FLUIDS.
--- NOTE | 2017-06-06 22:41 | NUR ---
RN NOTES PATIENT REFUSED REMERON 7.5 MG PO. ATTEMPTED X3, MIXED WITH APPLE SAUCE, EXPLAINED RISKS AND BENEFITS, PATIENT STILL REFUSED.
[2017-06-07 04:00] VITALS: BP 117/70
[2017-06-07] MEDS: PIPERACILLIN /TAZOBACTAM 2.25 G in IV D5W 50 ML IV SCH ×4 (05:43→23:04)
[2017-06-07 06:33] LABS: CREATININE 0.9 mg/dL (0.6-1.3)
[2017-06-07 06:35] LABS: HEMATOCRIT 32 % (33-45); HEMOGLOBIN 10.8 g/dL (11.5-14.8); LYMPHOCYTES # (AUTO) 0.8 /CMM (0.8-4.8); LYMPHOCYTES % (AUTO) 6.3 % (20.0-44.0); MEAN CORPUSCULAR HEMOGLOBIN 28 PG (26.0-33.0); MEAN CORPUSCULAR HGB CONC 33 g/dl (31.0-36.0); MEAN CORPUSCULAR VOLUME 85 fL (82-100); MONOCYTES # (AUTO) 0.3 /CMM (0.1-1.30); MONOCYTES % (AUTO) 2.3 % (2.0-12.0); NEUTROPHILS # (AUTO) 10.9 /CMM (1.8-8.9); NEUTROPHILS % (AUTO) 91.4 % (43.0-81.0); PLATELET COUNT (AUTO) 201 /CMM (150-450); RDW COEFFICIENT OF VARIATION 15.6 (11.5-15.0); RED BLOOD CELL COUNT(AUTO) 3.83 MIL/uL (4.0-5.2); WHITE BLOOD COUNT (AUTO) 11.9 K/uL (4.3-11.0)
[2017-06-07 06:42] LABS: POTASSIUM 2.6 mmol/L (3.5-5.1)
--- NOTE | 2017-06-07 06:55 | NUR ---
NOTES PATIENT IS ALERT AND AWAKE, NON-VERBAL, NO SOB, TOLERATING 2LPM VIA NC. NO COMPLAIN OF PAIN, REFUSED WATER AND MEDICATION. LEFT AC PERIPHERAL LINE IS PATENT AND INFUSING WELL, JALLOH CATHETER DRAINING WELL, PLACED A CALL TO EPIC MD REGARDING POTASSIUM LEVEL OF 2.6. NO CALL BACK YET, ENDORSED TO AM NURSE TO FOLLOW UP WITH MD. NEEDS ATTENDED, CALL LIGHT WITHIN REACH.
[2017-06-07 08:00] VITALS: BP 120/80
--- NOTE | 2017-06-07 08:00 | NUR ---
RN NOTES RECEIVED PATIENT IN THE ROOM, AO X2, DEPRESS, MOOD FLAT, FAROESE SPEAKER, PATIENT ON O2-2L NC, ENCOURAGED TO EXPRESS FEELINGS AND CONCERNS TO NSG, PATIENT REFUSED PAIN AT THIS TIME, ASSIST TURN AND REPOSITION Q 2 HR, REDNESS SACRAL AREA APPLIED Z-GUARD, AND MEPILEX, IV LINE ON LEFT AC AREA INTACT INFUSING NS AT 75 ML/HR, PATIENT HAS A JALLOH CATHETER DARNING DARK YELLOW OUTPUT, ENCOURAGED TO INCREASE FLUID INTAKE, AND EAT, PATIENT POOR EATER WITH HELP OF MASS SPEC PATIENT EAT BREAKFAST 50%, NEEDS ATTENDED AND ANTICIPATED, CALL LIGHT WITHIN TO REACH, CONTINUED MONITORING.
[2017-06-07] MEDS: PANTOPRAZOLE 40 MG VIAL IV SCH ×2 (09:38→17:56)
[2017-06-07] MEDS: DOCUSATE SODIUM 100 MG CAPSULE PO SCH ×2 (09:38→17:56)
[2017-06-07 09:59] LABS: BAND % (MANUAL) 35 % (0.0-5.0); LYMPHOCYTES % (MANUAL) 7 % (16-48); MONOCYTES % (MANUAL) 1 % (0-11.0); NEUTROPHILS % (MANUAL) 57 (42-76)
[2017-06-07] MEDS ORDERED: POTASSIUM CHLORIDE 20 MEQ POWDER PACKET PO ONE (10:30)
[2017-06-07] MEDS ORDERED: POTASSIUM CL. PREMIX PERIPHER. 50 ML IV ONE (11:00)
--- NOTE | 2017-06-07 12:00 | NUR ---
RN NOTES PATIENT REFUSED LUNCH, SEEN BY PSYCHIATRIST DR GUERRIER, STILL DEPRESS, NO ENGAGING CONVERSATION WHEN SPOKE TO, NO SELF DISCLOSURE, ASSIST TURN AND REPOSITION Q 2 HR, CALL LIGHT WITHIN TO REACH, CONTINUED MONITORING.
[2017-06-07] MEDS: LACTOSE-FREE FOOD 237 ML LIQUID PO SCH (17:00)
--- NOTE | 2017-06-07 18:30 | NUR ---
RN NOTES PATIENT POOR EATER REFUSED LUNCH, AND DINNER, V/S TAKEN STABLE, PATIENT MED COMPLIANT, ASSIST TURN AND REPOSITION Q 2 HR, ON O2-2L, NO C/O PAIN AT THIS TIME. CALL LIGHT WITHIN TO REACH. ENDORSED ONCOMING NURSE FOR CONTINUATION OF CARE.
--- NOTE | 2017-06-07 19:20 | NUR ---
MS RN OPENING NOTES RECEIVED PT IN BED AWAKE,RESTING COMFORTABLY,ON O2 VIA N/C AT 2L/MIN.O2 SAT 99%.NO S/SX OF PAIN OR DISCOMFORT NOTED. IV SITE LT AC INTACT, PATENT NO S/SX OF INFILTRATION NOTED. F/C IN PLACE DRAINING YELLOW COLOR URINE. CALL LIGHT WITHIN REACH. KEPT CLEAN AND COMFORTABLE.ATTENDED ALL NEEDS.WILL MONITOR
[2017-06-07 20:00] VITALS: BP 105/54
[2017-06-07 22:00] VITALS: BP 105/54
[2017-06-07] MEDS: IV NS 0.9% 1,000 ML IV PRN (22:45)
[2017-06-08] MEDS: PIPERACILLIN /TAZOBACTAM 2.25 G in IV D5W 50 ML IV SCH ×3 (05:35→18:45)
[2017-06-08 06:31] LABS: HEMATOCRIT 31 % (33-45); HEMOGLOBIN 10.5 g/dL (11.5-14.8); LYMPHOCYTES # (AUTO) 0.8 /CMM (0.8-4.8); LYMPHOCYTES % (AUTO) 5.8 % (20.0-44.0); MEAN CORPUSCULAR HEMOGLOBIN 28 PG (26.0-33.0); MEAN CORPUSCULAR HGB CONC 34 g/dl (31.0-36.0); MEAN CORPUSCULAR VOLUME 84 fL (82-100); MONOCYTES # (AUTO) 0.2 /CMM (0.1-1.30); MONOCYTES % (AUTO) 1.6 % (2.0-12.0); NEUTROPHILS % (AUTO) 92.6 % (43.0-81.0); PLATELET COUNT (AUTO) 161 /CMM (150-450); RED BLOOD CELL COUNT(AUTO) 3.68 MIL/uL (4.0-5.2)
[2017-06-08 07:06] LABS: CALCIUM, SERUM 8.6 mg/dL (8.5-10.1); CREATININE 0.8 mg/dL (0.6-1.3)
[2017-06-08 07:58] LABS: POTASSIUM 2.5 mmol/L (3.5-5.1)
[2017-06-08 08:00] VITALS: BP 129/75
[2017-06-08] MEDS: LACTOSE-FREE FOOD 237 ML LIQUID PO SCH ×2 (08:00→17:07)
--- NOTE | 2017-06-08 08:00 | NUR ---
RN NOTES RECEIVED PATIENT IN THE BED, A/O X2/3, DEPRESS, MOOD FLAT, VERBALIZED UNDERSTANDING, NO ACUTE RESPIRATORY DISTRESS, ON O2-2L NC, V/S TAKEN STABLE , F/C DRAIN YELLOW OUTPUT, V/S STABLE, NEEDS ATTENDED AND ANTICIPATED, ASSIST PATIENT EATING TOLERATED FOOD 50%, CALL LIGHT WITHIN TO REACH, PATIENT TURN AND REPOSITION SELF IN THE BED, CONTINUED MONITORING. IV LINE LEFT AC AREA INTACT.
[2017-06-08] MEDS: DOCUSATE SODIUM 100 MG CAPSULE PO SCH ×2 (08:46→17:06)
[2017-06-08] MEDS: PANTOPRAZOLE 40 MG VIAL IV SCH ×2 (08:46→17:06)
[2017-06-08] MEDS: MULTIVITAMINS,THERAGRAN 1 UDTAB TABLET PO SCH (08:47)
[2017-06-08 09:00] LABS: BAND % (MANUAL) 4 % (0.0-5.0); LYMPHOCYTES % (MANUAL) 3 % (16-48); MONOCYTES % (MANUAL) 4 % (0-11.0); NEUTROPHILS % (MANUAL) 89 (42-76)
[2017-06-08] MEDS ORDERED: POTASSIUM CHLORIDE 20 MEQ TAB.PRT.SR PO ONE (09:00)
[2017-06-08] MEDS: POTASSIUM CL. PREMIX PERIPHER. 50 ML IV SCH ×4 (10:01→14:21)
[2017-06-08] MEDS ORDERED: GLYTROL 1,000 ML BAG NG PRN (10:30)
--- NOTE | 2017-06-08 11:13 | NUR ---
WOUND CARE CONSULT: PT PRESENTS WITH SACRAL DEEP TISSUE INJURY WITH IS INTACT AND WAS PRESENT ON ADMISSION. RECOMMENDATIONS MADE FOR SKIN PROTECTION AND DISCUSSED WITH NURSING STAFF. PT IS CACHECTIC AND INCONTINENT OF STOOL. SACRAL SCARRING NOTED DISTAL TO DTI. PT IS EXTREMELY BONY. CURRENT OSMEL SCORE IS 13. PT ON IOANA ISOFLEX LOW AIRLOSS BED. WILL SEE PRN. HDZ IN AGREEMENT WITH PLAN OF CARE. Addendum: 06/08/17 at 1118 by INDRA VASQUEZ WNDNU Amended: Links added.
--- NOTE | 2017-06-08 12:00 | NUR ---
RN NOTES PATIENT A/O X2/3, DEPRESS, NG TUBE INSERTION REFUSED, REFUSED SIGN CONSENT FORM, FAMILY NOTIFIED. PATIENT DEPRESS, ASSIST TURN AND REPOSITION Q 2 HR, DVT PUMP ON, INFUSING IV ON LEFT FOREARM, CALL LIGHT WITHIN TO REACH, CONTINUED MONITORING.
[2017-06-08] MEDS ORDERED: FEE PK DOSING 1 MIN EA MC ONE (14:45)
[2017-06-08] MEDS ORDERED: VANCOMYCIN 0.75 GM in IV D5W 250 ML IV ONE (15:00)
--- NOTE | 2017-06-08 15:00 | NUR ---
RN NOTES CALLED SHAILA CAR REPAIRMAN AND NOTIFIED ABOUT PATIENT REFUSED NG TUBE. SEEN PATIENT BY DR GUERRIER, CALL LIGHT WITHIN TO REACH, CONTINUED MONITORING.
[2017-06-08] MEDS: DOXYCYCLINE 100 MG in IV D5W 100 ML IV SCH ×2 (15:22→21:52)
[2017-06-08 16:00] VITALS: BP 119/72
--- NOTE | 2017-06-08 17:00 | NUR ---
RN NOTES PATIENT MED COMPLIANT AFTER TEACH, EAT DINER WITH ASSIST OF , INFUSING NS 75 ML/HR LEFT FOREARM, DVT PUMP ON, ENCOURAGED TO INCREASE FLUID INTAKE, V/S TAKEN STABLE, PATIENT HAS NO C/O PAIN AT THIS TIME. CONTINUED MONITORING.
--- NOTE | 2017-06-08 19:00 | NUR ---
RN NOTES PATIENT HAS NO ACUTE DISTRESS, NO RESPIRATORY DISTRESS, NEXT TO THE BED, ASSIST TURN AND REPOSITION Q 2 HR. ENDORSED ONCOMING NURSE FOR CONTINUATION OF CARE.
--- NOTE | 2017-06-08 19:20 | NUR ---
RN OPEN NOTES RECEIVED PATIENT AWAKE WITH FAMILY AT BEDSIDE. A/O X2. NO SIGNS OF DISTRESS OR DISCOMFORT. BREATHING EVEN AND UNLABORED. ON 2LPM O2 VIA NC. IV ACCESS IN LFA WITH NS INFUSING, PATENT AND INTACT, NO SIGNS OF REDNESS OR INFILTRATION. HAS F/C INTACT, WITH CLEAR YELLOW FLUID DRAINING. BED IN LOW LOCKED POSITION WITH SIDE RAILS X2. CALL LIGHT WITHIN REACH. WILL CONTINUE TO MONITOR.
[2017-06-08 20:00] VITALS: BP 85/55
[2017-06-08 20:30] VITALS: BP 134/81
[2017-06-08] MEDS: IV NS 0.9% 1,000 ML IV PRN (21:52)
[2017-06-09] MEDS: PIPERACILLIN /TAZOBACTAM 2.25 G in IV D5W 50 ML IV SCH ×4 (00:09→19:21)
[2017-06-09] MEDS ORDERED: VANCOMYCIN 0.75 GM in IV D5W 250 ML IV SCH (03:00)
--- NOTE | 2017-06-09 06:58 | NUR ---
RN CLOSING NOTES PATIENT RESTING IN BED, EASILY AROUSABLE. A/O X2. NO SIGNS OF DISTRESS OR DISCOMFORT. BREATHING EVEN AND UNLABORED. ON 2LPM O2 VIA NC. IV ACCESS IN LFA WITH NS INFUSING, PATENT AND INTACT, NO SIGNS OF REDNESS OR INFILTRATION. HAS F/C INTACT, WITH CLEAR YELLOW FLUID DRAINING. ALL NEEDS MET. NO SIGNIFICANT CHANGES THROUGH THE NIGHT. REPOSITION PATIENT Q2H. BED IN LOW LOCKED POSITION WITH SIDE RAILS X2. CALL LIGHT WITHIN REACH. WILL ENDORSE TO AM SHIFT FOR JOVANA.
--- NOTE | 2017-06-09 07:00 | NUR ---
RN NOTES: PATIENT AOX2, SAUDI ARABIAN SPEAKING, UNDERSTANDS [place]. NONLABORED BREATHING ON ROOM AIR. NO SIGNS OF DISTRESS. NO FACIAL GRIMACING NOTED. BED IN LOWEST LOCKED POSITION. CALL LIGHT WITHIN REACH. WILL CONTINUE TO MONITOR
[2017-06-09 07:17] LABS: EOSINOPHILS % (AUTO) 0.1 % (0.0-6.0); HEMATOCRIT 29 % (33-45); HEMOGLOBIN 9.6 g/dL (11.5-14.8); LYMPHOCYTES # (AUTO) 0.8 /CMM (0.8-4.8); LYMPHOCYTES % (AUTO) 7.3 % (20.0-44.0); MEAN CORPUSCULAR HEMOGLOBIN 28 PG (26.0-33.0); MEAN CORPUSCULAR HGB CONC 34 g/dl (31.0-36.0); MEAN CORPUSCULAR VOLUME 83 fL (82-100); MONOCYTES # (AUTO) 0.3 /CMM (0.1-1.30); MONOCYTES % (AUTO) 2.6 % (2.0-12.0); NEUTROPHILS # (AUTO) 10.3 /CMM (1.8-8.9); PLATELET COUNT (AUTO) 145 /CMM (150-450); RDW COEFFICIENT OF VARIATION 15.3 (11.5-15.0); RED BLOOD CELL COUNT(AUTO) 3.44 MIL/uL (4.0-5.2); WHITE BLOOD COUNT (AUTO) 11.4 K/uL (4.3-11.0)
[2017-06-09 07:40] LABS: CREATININE 0.6 mg/dL (0.6-1.3)
[2017-06-09 07:47] LABS: POTASSIUM 2.7 mmol/L (3.5-5.1)
[2017-06-09 08:00] VITALS: BP 124/74
[2017-06-09] MEDS: LACTOSE-FREE FOOD 237 ML LIQUID PO SCH ×2 (08:00→16:46)
[2017-06-09 08:41] LABS: BAND % (MANUAL) 7 % (0.0-5.0); LYMPHOCYTES % (MANUAL) 8 % (16-48); NEUTROPHILS % (MANUAL) 85 (42-76)
[2017-06-09] MEDS: MULTIVITAMINS,THERAGRAN 1 UDTAB TABLET PO SCH (09:00)
[2017-06-09] MEDS: DOCUSATE SODIUM 100 MG CAPSULE PO SCH ×2 (09:00→17:00)
[2017-06-09] MEDS: PANTOPRAZOLE 40 MG VIAL IV SCH ×2 (09:03→18:50)
[2017-06-09] MEDS: DOXYCYCLINE 100 MG in IV D5W 100 ML IV SCH ×2 (09:07→21:36)
[2017-06-09] MEDS: Potassium Chloride 10 MEQ, LIDOCAINE HCL/PF 1% 1 ML in IV D5W 50 ML IV SCH ×6 (10:58→22:43)
[2017-06-09 12:00] VITALS: BP 122/72
[2017-06-09] MEDS: LACTOBACILLUS RHAMNOSUS GG 1 EACH CAP.SPRINK PO SCH (17:00)
[2017-06-09 17:08] VITALS: BP 125/72
--- NOTE | 2017-06-09 17:20 | NUR ---
RN NOTES: PATIENT RESTING IN BED. NONLABORED BREATHING NOTED ON 2 L NASAL CANNULA. NO FACIAL GRIMACING. DURING DAY, PATIENT KEPT CLEAN AND DRY, TURNED AND REPOSITIONED EVERY 2 HOURS. LFA IV NOTED TO BE INFILTRATED, IV LINE REMOVED, ICE PACK OFFERED TO PATIENT. ANOTHER IV STARTED ON RIGHT UPPER ARM WITH 22 GAUGE, PATENT AND INTACT AT 1845. PATIENT REFUSING IV PROTONIX AND KEPT REMOVING ARM. FINALLY, PATIENT AGREED TO TO HAVE ZOSYN INFUSED AT 1715. DURING SHIFT, PATIENT REFUSED PO MEDICATIONS. BENEFITS AND RISKS EXPLAINED MULITPLE TIMES. PATIENT STILL REFUSING. PATIENT ATE SOUP THROUGHT MEALS AND DRANK 2 BOXES OFF APPLE JUICE. NO SIGNS OF NAUSEA OR VOMITTING. PATIENT STILL REFUSING NG TUBE INSERTION WHEN ASKED TODAY. SHANE CUNNINGHAM, LEAVE COORDINATOR AWARE OF ALL. LAB VALUE REPORTED TO LEAVE COORDINATOR UPON RESULTED, ORDERS RECEIVED LATER IN THE DAY,. PATIENT ALSO ON TELE MONITORING WITH SINUS RHYTHEM THROUGHOUT THE DAY. 2 BAGS OF POTASSIUM TO BE INFUSED DUE TO UNAVAILABILITY OF IV ACCESS EARLIER. ENDORSED TO NEXT SHIFT
--- NOTE | 2017-06-09 19:20 | NUR ---
RN NOTES: PATIENT RESTING IN BED. NONLABORED BREATHING NOTED ON 2 L NASAL CANNULA. NO FACIAL GRIMACING. DURING DAY, PATIENT KEPT CLEAN AND DRY, TURNED AND REPOSITIONED EVERY 2 HOURS. LFA IV NOTED TO BE INFILTRATED, IV LINE REMOVED, ICE PACK OFFERED TO PATIENT. ANOTHER IV STARTED ON RIGHT UPPER ARM WITH 22 GAUGE, PATENT AND INTACT AT 1845. PATIENT REFUSING IV PROTONIX AND KEPT REMOVING ARM. FINALLY, PATIENT AGREED TO TO HAVE ZOSYN INFUSED AT 1715. DURING SHIFT, PATIENT REFUSED PO MEDICATIONS. BENEFITS AND RISKS EXPLAINED MULITPLE TIMES. PATIENT STILL REFUSING. PATIENT ATE SOUP THROUGHT MEALS AND DRANK 2 BOXES OFF APPLE JUICE. NO SIGNS OF NAUSEA OR VOMITTING. PATIENT STILL REFUSING NG TUBE INSERTION WHEN ASKED TODAY. SHANE CUNNINGHAM, SURGICAL MANAGER AWARE OF ALL. LAB VALUE REPORTED TO SURGICAL MANAGER UPON RESULTED, ORDERS RECEIVED LATER IN THE DAY,. PATIENT ALSO ON TELE MONITORING WITH SINUS RHYTHEM THROUGHOUT THE DAY. 2 BAGS OF POTASSIUM TO BE INFUSED DUE TO UNAVAILABILITY OF IV ACCESS EARLIER. ENDORSED TO NEXT SHIFT
--- NOTE | 2017-06-09 19:20 | NUR ---
RN OPEN NOTES RECEIVED PATIENT AWAKE IN BED. A/O X2. NO SIGNS OF DISTRESS OR DISCOMFORT. BREATHING EVEN AND UNLABORED. ON 2LPM O2 VIA NC. ON TELE MONITORING WITH SR 86 NOTED. IV ACCESS IN ALFRED WITH ZOSYN CURRENTLY INFUSING, PATENT AND INTACT, NO SIGNS OF REDNESS OR INFILTRATION. HAS F/C INTACT, WITH CLEAR YELLOW FLUID DRAINING. BED IN LOW LOCKED POSITION WITH SIDE RAILS X2. CALL LIGHT WITHIN REACH. WILL CONTINUE TO MONITOR.
[2017-06-09 19:58] VITALS: BP 114/66
[2017-06-09 20:00] VITALS: BP_SYST 114; BP_SYST 95; BP_DIAS 66; BP_DIAS 69
[2017-06-09] MEDS: Potassium Chloride 20 MEQ in IV NS 0.9% 1,000 ML IV PRN (20:30)
--- NOTE | 2017-06-09 20:54 | NUR ---
RN NOTES P.C: DR. SANTORO GAVE ORDER FOR MIDLINE INSERTION, MD MADE AWARE THAT PATIENT IS ON MULTIPLE IV ANTIBIOTICS AND IS ALSO RECEIVING KCL 20MEQ IN NS, FOR MAINTENANCE FLUID. PER AM SHIFT, PATIENT IV INFILTRATED DURING SHIFT AND THEY MADE MULTIPLE ATTEMPTS TO OBTAIN IV ACCESS X4 PATIENT IS A HARD STICK AND THEY WERE WAS FINALLY ABLE TO INSERT A ALFRED 22G IV.
[2017-06-09] MEDS: VANCOMYCIN 500 MG in IV D5W 100 ML IV SCH (22:42)
[2017-06-10] VITALS: BP 126/75
[2017-06-10] MEDS: PIPERACILLIN /TAZOBACTAM 2.25 G in IV D5W 50 ML IV SCH ×4 (00:36→18:11)
[2017-06-10 06:46] LABS: BASOPHILS % (AUTO) 0.2 % (0.0-2.0); EOSINOPHILS # (AUTO) 0.1 /CMM (0.0-0.7); EOSINOPHILS % (AUTO) 0.9 % (0.0-6.0); HEMATOCRIT 30 % (33-45); HEMOGLOBIN 10.2 g/dL (11.5-14.8); LYMPHOCYTES # (AUTO) 1.2 /CMM (0.8-4.8); LYMPHOCYTES % (AUTO) 16.6 % (20.0-44.0); MEAN CORPUSCULAR HEMOGLOBIN 28 PG (26.0-33.0); MEAN CORPUSCULAR HGB CONC 34 g/dl (31.0-36.0); MEAN CORPUSCULAR VOLUME 82 fL (82-100); MONOCYTES # (AUTO) 0.4 /CMM (0.1-1.30); NEUTROPHILS # (AUTO) 5.6 /CMM (1.8-8.9); NEUTROPHILS % (AUTO) 76.3 % (43.0-81.0); PLATELET COUNT (AUTO) 107 /CMM (150-450); RDW COEFFICIENT OF VARIATION 15.1 (11.5-15.0); WHITE BLOOD COUNT (AUTO) 7.3 K/uL (4.3-11.0)
--- NOTE | 2017-06-10 06:59 | NUR ---
RN CLOSING NOTES PATIENT RESTING IN BED, EASILY AROUSABLE. A/O X2. NO SIGNS OF DISTRESS OR DISCOMFORT. BREATHING EVEN AND UNLABORED. ON 2LPM O2 VIA NC. ON TELE MONITORING WITH SR 89 NOTED. IV ACCESS IN ALFRED WITH NS INFUSING, PATENT AND INTACT, NO SIGNS OF REDNESS OR INFILTRATION. HAS F/C INTACT, WITH CLEAR YELLOW FLUID DRAINING. ALL NEEDS MET. NO SIGNIFICANT CHANGES THROUGH THE NIGHT. REPOSITION PATIENT Q2H AND PRN. BED IN LOW LOCKED POSITION WITH SIDE RAILS X2. CALL LIGHT WITHIN REACH. WILL ENDORSE TO AM SHIFT FOR JOVANA.
[2017-06-10 07:19] LABS: CALCIUM, SERUM 8.1 mg/dL (8.5-10.1); CREATININE 0.5 mg/dL (0.6-1.3); PHOSPHORUS 1.5 mg/dL (2.5-4.9); POTASSIUM 3.8 mmol/L (3.5-5.1)
[2017-06-10 07:27] LABS: MAGNESIUM 1.2 mg/dL (1.8-2.4)
--- NOTE | 2017-06-10 07:52 | NUR ---
MEAT PULLER NOTES PATIENT ALERT AND ORIENTED X2, FRENCH SPEAKING, NO DISTRESS NOTED, MONITOR SHOWS SINUS RHYTHM. BREATHING EVEN AND UNLABORED, IVF INFUSING AND TOLERATING WELL, RECEIVED CALL FROM LAB RE: MAG LEVEL OF 1.2. SALAS COAL CARRIER MADE AWARE AND RECEIVED ORDER OF MAGNESIUM 3GM IVPB. ORDER NOTED AND CARRIED OUT. NEEDS ATTENDED, SAFETY MEASURES IN PLACED, KEPT COMFORTABLE. CALL LIGHT WITHIN REACH, WILL CONTINUE TO MONITOR.
[2017-06-10 08:00] VITALS: BP_SYST 111; BP_SYST 129; BP_DIAS 72; BP_DIAS 77
[2017-06-10] MEDS: LACTOSE-FREE FOOD 237 ML LIQUID PO SCH ×2 (08:34→17:00)
[2017-06-10] MEDS: Magnesium 1GM/D5W 100ML PREMIX 100 ML IV SCH ×3 (08:38→11:07)
[2017-06-10] MEDS: DOXYCYCLINE 100 MG in IV D5W 100 ML IV SCH ×2 (08:43→21:37)
[2017-06-10] MEDS: LACTOBACILLUS RHAMNOSUS GG 1 EACH CAP.SPRINK PO SCH ×2 (08:43→17:00)
[2017-06-10] MEDS: MULTIVITAMINS,THERAGRAN 1 UDTAB TABLET PO SCH (08:43)
[2017-06-10] MEDS: DOCUSATE SODIUM 100 MG CAPSULE PO SCH ×2 (08:43→17:00)
[2017-06-10] MEDS: PANTOPRAZOLE 40 MG VIAL IV SCH ×2 (08:48→18:07)
[2017-06-10] MEDS ORDERED: Magnesium 1GM/D5W 100ML PREMIX PIGGYBACK IV ONE (09:00)
[2017-06-10 10:12] LABS: BAND % (MANUAL) 2 % (0.0-5.0); LYMPHOCYTES % (MANUAL) 8 % (16-48); MONOCYTES % (MANUAL) 7 % (0-11.0); NEUTROPHILS % (MANUAL) 83 (42-76)
[2017-06-10] MEDS ORDERED: NEUTRA PHOS 1 POWD.PACKET NG ONE (15:00)
[2017-06-10] MEDS: VANCOMYCIN 500 MG in IV D5W 100 ML IV SCH (15:23)
--- NOTE | 2017-06-10 15:59 | NUR ---
STEREO COMPILER NOTES PATIENT WAS ABLE TO AMBULATE WITH PHYSICAL THERAPY. ATE LUNCH MEALS AT 75%. NO DISTRESS AT THIS TIME.
[2017-06-10 18:07] VITALS: BP 95/64
--- NOTE | 2017-06-10 18:43 | NUR ---
MARINE TOWER OPERATOR NOTES PATIENT ALERT AND ORIENTED X2, NO DISTRESS NOTED, BREATHING EVEN AND UNLABORED, IVF INFUSING AND TOLERATING WELL, F/C PATENT AND DRAINING, HEART MONITOR SHOWS SINUS RHYTHM 88, NEEDS ATTENDED AND MET, WOUND TREATMENT RENDERED, CALL LIGHT WITHIN REACH, SAFETY MEASURES IN PLACED, WILL ENDORSE TO PLASTIC TOOL MAKER FOR JOVANA.
--- NOTE | 2017-06-10 19:30 | NUR ---
RN NOTES RECEIVED PATIENT IN BED AWAKE, AO X 2, RESPONSIVE TO VOICE AND TOUCH, COOPERATIVE. NO SIGNS OF ACUTE DISTRESS NOTED. DENIES ANY PAIN AT THIS TIME. IV SITE PATENT, INTACT; IVF INFUSING ORDERED. JALLOH CATHETER PATENT, INTACT; DRAINING CLEAR, YELLOW URINE. SAFETY REMINDERS GIVEN. ON LOW BED WITH BILATERAL UPPER SIDE RAILS UP. CALL PANDESAL WITHIN EASY REACH. WILL CONTINUE TO MONITOR. Addendum: 06/12/17 at 0112 by MAXIMILIANO BENITEZ RN CORRECTION: CALL BUTTON WITHIN EASY REACH
[2017-06-10 20:00] VITALS: BP 95/69
[2017-06-10] MEDS ORDERED: IV PREMIX NS +20MEQ KCL 1 L IV ONE (22:20)
[2017-06-10] MEDS: Potassium Chloride 20 MEQ in IV NS 0.9% 1,000 ML IV PRN (22:26)
[2017-06-11] VITALS (8 sets, daily range): BP systolic 81–111; BP diastolic 52–72
[2017-06-11] MEDS: PIPERACILLIN /TAZOBACTAM 2.25 G in IV D5W 50 ML IV SCH ×4 (00:13→18:29)
--- NOTE | 2017-06-11 06:30 | NUR ---
RN NOTES PATIENT ASLEEP, EASILY AROUSABLE. RESPIRATIONS EVEN. NO SIGNS OF PAIN NOTED. DUE MEDS GIVEN WITH NO ASE NOTED. NEEDS ATTENDED. KEPT CLEAN AND DRY. SAFETY PRECAUTIONS AND COMFORT MEASURES IN PLACE. WILL GIVE REPORT TO DAY SHIFT FOR CONTINUITY OF CARE.
[2017-06-11 06:52] LABS: BASOPHILS % (AUTO) 0.2 % (0.0-2.0); EOSINOPHILS # (AUTO) 0.1 /CMM (0.0-0.7); EOSINOPHILS % (AUTO) 1.2 % (0.0-6.0); HEMATOCRIT 32 % (33-45); HEMOGLOBIN 10.9 g/dL (11.5-14.8); LYMPHOCYTES # (AUTO) 1.1 /CMM (0.8-4.8); LYMPHOCYTES % (AUTO) 26.7 % (20.0-44.0); MEAN CORPUSCULAR HEMOGLOBIN 28 PG (26.0-33.0); MEAN CORPUSCULAR HGB CONC 34 g/dl (31.0-36.0); MEAN CORPUSCULAR VOLUME 82 fL (82-100); MONOCYTES # (AUTO) 0.4 /CMM (0.1-1.30); MONOCYTES % (AUTO) 8.6 % (2.0-12.0); NEUTROPHILS # (AUTO) 2.6 /CMM (1.8-8.9); NEUTROPHILS % (AUTO) 63.3 % (43.0-81.0); PLATELET COUNT (AUTO) 173 /CMM (150-450); RDW COEFFICIENT OF VARIATION 15.1 (11.5-15.0); WHITE BLOOD COUNT (AUTO) 4.1 K/uL (4.3-11.0)
[2017-06-11 07:13] LABS: CALCIUM, SERUM 7.8 mg/dL (8.5-10.1); CREATININE 0.5 mg/dL (0.6-1.3); MAGNESIUM 1.7 mg/dL (1.8-2.4); PHOSPHORUS 1.9 mg/dL (2.5-4.9)
[2017-06-11] MEDS: LACTOSE-FREE FOOD 237 ML LIQUID PO SCH ×2 (08:00→17:00)
--- NOTE | 2017-06-11 08:03 | NUR ---
TELE/RN PATIENT RECEIVED PATIENT RECEIVED IN BED AWAKE. BULGARIAN SPEAKING. ALERT AND ORIENTED X2. PATIENT WITH SR AT 70. DENIES PAIN AT THIS TIME. ON OXYGEN AT 2L/MIN. RESPIRATION REGULAR AND UNLABORED. DENIES SOB. JALLOH CATH DRAINING FREELY. NO BLADDER DISTENSION NOTED. ALFRED IV #18 WITH NO S/SX INFILTRATION NOTED. THE RESIDENT IN STABLE CONDITION. BED LOW AND LOCKED. BED ALARM ON. SIDE RAIL X3 IN UPRIGHT POSITION. CALL LIGHT WITHIN REACH. WILL CONTINUE TO MONITOR.
[2017-06-11] MEDS: PANTOPRAZOLE 40 MG VIAL IV SCH ×2 (08:39→17:45)
[2017-06-11] MEDS: DOXYCYCLINE 100 MG in IV D5W 100 ML IV SCH ×2 (08:40→20:40)
[2017-06-11] MEDS: DOCUSATE SODIUM 100 MG CAPSULE PO SCH ×2 (08:54→17:47)
[2017-06-11] MEDS: MULTIVITAMINS,THERAGRAN 1 UDTAB TABLET PO SCH (08:54)
[2017-06-11] MEDS: LACTOBACILLUS RHAMNOSUS GG 1 EACH CAP.SPRINK PO SCH ×2 (08:54→17:46)
[2017-06-11] MEDS: VANCOMYCIN 500 MG in IV D5W 100 ML IV SCH (11:19)
[2017-06-11] MEDS: MEGESTROL ACETATE SUSP 400 MG/10 ML UDC PO SCH ×2 (11:55→17:46)
[2017-06-11] MEDS: DRONABINOL (2.5 MG) 2.5 MG CAPSULE PO SCH ×2 (11:56→17:47)
[2017-06-11] MEDS: Magnesium 1GM/D5W 100ML PREMIX 100 ML IV SCH ×2 (11:57→12:54)
[2017-06-11] MEDS ORDERED: K PHOS NEUTRAL 250 MG TABLET PO ONE (13:00)
--- NOTE | 2017-06-11 17:00 | NUR ---
MEDS GIVEN 1700 DUE MEDICATIONS GIVEN ORDERED. NO ASE NOTED. PATIENT STILL NOTED WITH POOR APPETITE. DESPITE EXPLAINING RISKS AND BENEFITS MULTIPLE TIMES.
--- NOTE | 2017-06-11 17:00 | NUR ---
SEEN BY DR HERNANDEZ WITH NEW ORDER OF REMERON.
--- NOTE | 2017-06-11 18:27 | NUR ---
RN CLOSING NOTE PATIENT IN BED AND AWAKE. ALERT AND ORIENTED X2. ON OXYGEN AT 2L/MIN VIA NC. RESPIRATION REGULAR AND UNLABORED. DENIES SOB, PAIN AT THIS TIME. ALFRED #18 PATENT WITH NO S/SX INFILTRATION. BED LOW AND LOCKED. SIDE RAIL X2 IN UPRIGHT POSITION. BED ALARM ON. CALL LIGHT WITHIN REACH. TURNING AND REPOSITIONING DONE. WILL ENDORSE TO OPERATIONAL TRAINER
--- NOTE | 2017-06-11 19:30 | NUR ---
RN NOTES RECEIVED PATIENT IN BED AWAKE, AO X 2, RESPONSIVE TO VOICE AND TOUCH, COOPERATIVE. NO SIGNS OF ACUTE DISTRESS NOTED. DENIES ANY PAIN AT THIS TIME. IV SITE PATENT, INTACT; IVF INFUSING ORDERED. JALLOH CATHETER PATENT, INTACT; DRAINING CLEAR, YELLOW URINE. SAFETY REMINDERS GIVEN. ON LOW BED WITH BILATERAL UPPER SIDE RAILS UP. CALL BUTTON WITHIN EASY REACH. WILL CONTINUE TO MONITOR.
[2017-06-11] MEDS: Potassium Chloride 20 MEQ in IV NS 0.9% 1,000 ML IV PRN (20:44)
[2017-06-11] MEDS: MIRTAZAPINE 15 MG TABLET PO SCH (21:26)
[2017-06-12] MEDS: PIPERACILLIN /TAZOBACTAM 2.25 G in IV D5W 50 ML IV SCH ×5 (00:02→23:48)
[2017-06-12] MEDS: VANCOMYCIN 500 MG in IV D5W 100 ML IV SCH ×2 (02:53→20:23)
--- NOTE | 2017-06-12 06:08 | NUR ---
N NOTES PATIENT ASLEEP, EASILY AROUSABLE. RESPIRATIONS EVEN. NO SIGNS OF PAIN NOTED. DUE MEDS GIVEN WITH NO ASE NOTED. NEEDS ATTENDED. KEPT CLEAN AND DRY. REPOSITIONED Q 2 HOURS. SAFETY PRECAUTIONS AND COMFORT MEASURES IN PLACE. WILL GIVE REPORT TO DAY SHIFT FOR CONTINUITY OF CARE.
[2017-06-12 07:08] LABS: CALCIUM, SERUM 7.9 mg/dL (8.5-10.1); CREATININE 0.5 mg/dL (0.6-1.3); PHOSPHORUS 2.1 mg/dL (2.5-4.9); POTASSIUM 3.8 mmol/L (3.5-5.1)
--- NOTE | 2017-06-12 07:34 | NUR ---
MS RN OPENING NOTES RECEIVED PATIENT AWAKE IN BED IN NO ACUTE SIGNS OF DISTRESS. A/O X 2, NO SIGNS OF PAIN OR DISCOMFORTS AT THIS TIME. MIDLINE ON ALFRED PATENT AND INTACT WITH IVF OF NS WITH 20MEQ KCL INFUSING @ 75ML/HR INFUSING WELL. JALLOH CATHETER IN PLACED AND PATENT, DRAINING CLEAR YELLOW URINE TO BEDSIDE URINARY BAG. BED IN LOW AND LOCKED POSITION WITH BILATERAL UPPER SIDE RAILS UP. CALL LIGHT WITHIN EASY REACH. WILL CONTINUE TO MONITOR PT ACCORDINGLY.
[2017-06-12 07:56] LABS: BASOPHILS % (AUTO) 0.2 % (0.0-2.0); EOSINOPHILS # (AUTO) 0.1 /CMM (0.0-0.7); EOSINOPHILS % (AUTO) 1.4 % (0.0-6.0); HEMATOCRIT 31 % (33-45); HEMOGLOBIN 10.8 g/dL (11.5-14.8); LYMPHOCYTES # (AUTO) 1.6 /CMM (0.8-4.8); MEAN CORPUSCULAR HEMOGLOBIN 28 PG (26.0-33.0); MEAN CORPUSCULAR HGB CONC 35 g/dl (31.0-36.0); MEAN CORPUSCULAR VOLUME 82 fL (82-100); MONOCYTES # (AUTO) 0.3 /CMM (0.1-1.30); MONOCYTES % (AUTO) 4.9 % (2.0-12.0); NEUTROPHILS # (AUTO) 3.3 /CMM (1.8-8.9); NEUTROPHILS % (AUTO) 63.5 % (43.0-81.0); PLATELET COUNT (AUTO) 190 /CMM (150-450); RDW COEFFICIENT OF VARIATION 14.9 (11.5-15.0); RED BLOOD CELL COUNT(AUTO) 3.84 MIL/uL (4.0-5.2); WHITE BLOOD COUNT (AUTO) 5.3 K/uL (4.3-11.0)
[2017-06-12 08:00] VITALS: BP 119/67
[2017-06-12] MEDS: LACTOSE-FREE FOOD 237 ML LIQUID PO SCH ×2 (08:04→16:57)
[2017-06-12] MEDS: DOCUSATE SODIUM 100 MG CAPSULE PO SCH ×2 (08:26→16:49)
[2017-06-12] MEDS: DRONABINOL (2.5 MG) 2.5 MG CAPSULE PO SCH ×2 (08:26→16:48)
[2017-06-12] MEDS: MEGESTROL ACETATE SUSP 400 MG/10 ML UDC PO SCH ×2 (08:26→16:47)
[2017-06-12] MEDS: PANTOPRAZOLE 40 MG VIAL IV SCH ×2 (08:26→16:49)
[2017-06-12] MEDS: LACTOBACILLUS RHAMNOSUS GG 1 EACH CAP.SPRINK PO SCH ×2 (08:26→16:49)
[2017-06-12] MEDS: MULTIVITAMINS,THERAGRAN 1 UDTAB TABLET PO SCH (08:31)
[2017-06-12] MEDS: DOXYCYCLINE 100 MG in IV D5W 100 ML IV SCH (08:33)
[2017-06-12 16:00] VITALS: BP 102/65
[2017-06-12] MEDS: Potassium Chloride 20 MEQ in IV NS 0.9% 1,000 ML IV PRN (16:52)
[2017-06-12] MEDS ORDERED: NEUTRA PHOS 1 POWD.PACKET NG ONE (17:30)
--- NOTE | 2017-06-12 17:52 | NUR ---
RN NOTES PT REFUSED NEUTRA PHOS PACKETS THIS AFTERNOON DESPITE ENCOURAGEMENT. WILL CONTINUE TO MONITOR.
--- NOTE | 2017-06-12 18:54 | NUR ---
MS RN CLOSING NOTES PATIENT RESTING IN BED AT MODERATE HIGH BACKREST POSITION. A/O X 2, RESPONDS AT TIMES TO VERBAL COMMUNICATION. ON 02 VIA N/C @ 2LPM, TOLERATING WELL WITH NO SOB NOTED. MIDLINE ON ALFRED PATENT AND INTACT WITH IVF OF NS WITH 20MEQ KCL INFUSING @ 75ML/HR INFUSING WELL. JALLOH CATHETER IN PLACED AND PATENT, DRAINING CLEAR YELLOW URINE TO BEDSIDE URINARY BAG. KEPT BED IN LOW AND LOCKED POSITION WITH BILATERAL UPPER SIDE RAILS UP. CALL LIGHT WITHIN EASY REACH. ALL NEEDS AND CARE PROVIDED WELL. WILL ENDORSED TO JEWEL BEARING POLISHER NURSE FOR JOVANA.
--- NOTE | 2017-06-12 19:15 | NUR ---
MS RN OPENING NOTES: RECEIVED PT AWAKE IN BED AND IS RESTING IN BED COMFORTABLY. PT IS A/OX2. PT IS ON 2LPM VIA NC AND IS TOLERATING WELL. NO S/S OF DISTRESS NOTED AT THIS TIME. PT HAS ALFRED 18G MIDLINE AND IS BEING INFUSED WITH NS WITH KCL 20 MEQ AT 75ML/HR. PT HAS JALLOH CATH AND ATTACHED TO DRAINING BAG WITH YELLOW URINE DRAINING. CALL LIGHT WITHIN PT'S REACH. BED KEPT IN LOW, LOCKED POSITION, AND SIDE RAILS X 2UP. WILL CONTINUE TO MONITOR PT.
[2017-06-12 20:00] VITALS: BP 99/63
[2017-06-12] MEDS: DOXYCYCLINE HYCLATE (100 MG) 100 MG TABLET PO SCH (21:00)
[2017-06-12] MEDS: MIRTAZAPINE 15 MG TABLET PO SCH (21:00)
[2017-06-13] MEDS: PIPERACILLIN /TAZOBACTAM 2.25 G in IV D5W 50 ML IV SCH ×4 (05:01→23:02)
--- NOTE | 2017-06-13 06:39 | NUR ---
MS RN CLOSING NOTES: ALL NEEDS WERE ATTENDED AND ANTICIPATED FOR. PT RESTING AND ASLEEP IN BED COMFORTABLY. PT IS A/OX2. PT IS ON 2LPM VIA NC AND IS TOLERATING WELL. NO S/S OF DISTRESS NOTED AT THIS TIME. PT HAS ALFRED 18G MIDLINE AND IS BEING INFUSED WITH NS WITH KCL 20 MEQ AT 75ML/HR. PT HAS JALLOH CATH AND ATTACHED TO DRAINING BAG WITH YELLOW URINE DRAINING. JALLOH CATH OUTPUT WAS 400ML. CALL LIGHT WITHIN PT'S REACH. BED KEPT IN LOW, LOCKED POSITION, AND SIDE RAILS X 2UP. WILL ENDORSE TO AM NURSE FOR JOVANA.
--- NOTE | 2017-06-13 07:30 | NUR ---
RN OPENING NOTES RECEIVED PT. IN BED AWAKE, A&OX1. BREATHING UNLABORED, AND EVENLY ON OXYGEN AT 2L/MIN VIA NASAL CANNULA. SUCTION SET AT BEDSIDE PER ASPIRATION PRECAUTION. NO S/S OF ACUTE DISTRESS. IV FLUIDS RUNNING AT 75 ML/HR. JALLOH CATHETER HAS CLEAR AND YELLOW URINE WITH 10CC OUTPUT. BED IS IN LOWEST, AND LOCKED POSITION. 2 SIDE RAILS UP, AND CALL LIGHT WITHIN REACH. ALL NEEDS MET. WILL CONTINUE TO ASSESS AND MONITOR.
[2017-06-13 08:00] VITALS: BP 111/66
[2017-06-13] MEDS: LACTOSE-FREE FOOD 237 ML LIQUID PO SCH ×2 (08:18→17:28)
[2017-06-13 08:40] LABS: CALCIUM, SERUM 7.8 mg/dL (8.5-10.1); CREATININE 0.5 mg/dL (0.6-1.3); PHOSPHORUS 2.3 mg/dL (2.5-4.9); POTASSIUM 3.9 mmol/L (3.5-5.1)
[2017-06-13] MEDS: MEGESTROL ACETATE SUSP 400 MG/10 ML UDC PO SCH ×2 (09:00→17:30)
[2017-06-13] MEDS: DOCUSATE SODIUM LIQ 100 MG/10 ML UDC PO SCH ×2 (09:00→17:30)
[2017-06-13] MEDS: LACTOBACILLUS RHAMNOSUS GG 1 EACH CAP.SPRINK PO SCH ×2 (09:00→17:30)
[2017-06-13] MEDS: MULTIVITAMINS,THERAGRAN 1 UDTAB TABLET PO SCH (09:00)
[2017-06-13] MEDS: DOXYCYCLINE HYCLATE (100 MG) 100 MG TABLET PO SCH ×2 (09:07→20:23)
[2017-06-13] MEDS: PANTOPRAZOLE 40 MG VIAL IV SCH ×2 (09:07→17:31)
[2017-06-13] MEDS: DRONABINOL (2.5 MG) 2.5 MG CAPSULE PO SCH ×2 (09:08→17:30)
[2017-06-13] MEDS: Potassium Chloride 20 MEQ in IV NS 0.9% 1,000 ML IV PRN (10:58)
--- NOTE | 2017-06-13 12:59 | NUR ---
RN NOTES PER DEMOLITION EXPERT RECOMMENDATIONS, PT. WAS PLACED IN A RECLINING CHAIR OUTSIDE HER ROOM TO INCREASE PT.'S ENVIRONMENTAL STIMULI. PT. TOLERATED TRANSFER WELL.
[2017-06-13] MEDS: VANCOMYCIN 500 MG in IV D5W 100 ML IV SCH (15:44)
[2017-06-13 16:00] VITALS: BP 114/73
[2017-06-13] MEDS ORDERED: NEUTRA PHOS 1 POWD.PACKET PO ONE (16:30)
--- NOTE | 2017-06-13 19:39 | NUR ---
RN CLOSING NOTES PT. IN BED AWAKE, A&OX1. BREATHING UNLABORED, AND EVENLY ON OXYGEN AT 2L/MIN VIA NASAL CANNULA. SUCTION SET AT BEDSIDE PER ASPIRATION PRECAUTION. NO S/S OF ACUTE DISTRESS. IV FLUIDS RUNNING AT 75 ML/HR. JALLOH CATHETER HAS CLEAR AND YELLOW URINE WITH TOTAL OF 600 CC OUTPUT. BED IS IN LOWEST, AND LOCKED POSITION. 2 SIDE RAILS UP, AND CALL LIGHT WITHIN REACH. ALL NEEDS MET. WILL ENDORSE REPORT TO NURSE.
--- NOTE | 2017-06-13 19:57 | NUR ---
ms/rn opening notes patient in bed, resting comfortably in bed, skin warm to touch, respirations even and unlabored, no grimace, no guarding, iv on ALFRED midline patent w/ no s/s of infiltration, alert oriented x2. able to follow simple commands and verbalize need with phrases. candelario catheter with urine output, on oxygen via nc at 2l. bed alarm on, call lights within reach. Will continue to monitor.
[2017-06-13 20:00] VITALS: BP 99/66
[2017-06-13] MEDS: MIRTAZAPINE 15 MG TABLET PO SCH (21:09)
[2017-06-14] MEDS: Potassium Chloride 20 MEQ in IV NS 0.9% 1,000 ML IV PRN ×2 (03:03→23:21)
[2017-06-14] MEDS: PIPERACILLIN /TAZOBACTAM 2.25 G in IV D5W 50 ML IV SCH ×4 (04:54→23:21)
--- NOTE | 2017-06-14 07:07 | NUR ---
S/RN NOTES PATIENT ABLE TO SLEEP DURING THE NIGHT. RESPIRATIONS EVEN AND UNLABORED, NIKOLAI WARM TO TOUCH ,IV SITE W/ NO S/S OF INFILTRATION, ON 2L OXYGEN VIA NC. PROVIDED/OFFERED FLUIDS. ABLE TO TOLERATE MEDS W/ APPLE SAUCE. WILL CONTINUE MONITORING AND WILL ENDORSE TO AM RN FOR JOVANA. CALL LIGHTS WITHIN REACH, BED IN LOCK POSITION, BED ALARM ON.
--- NOTE | 2017-06-14 07:30 | NUR ---
RN OPENING NOTES RECEIVED PT. IN BED AWAKE, A&OX1. BREATHING UNLABORED, AND EVENLY ON OXYGEN AT 2L/MIN VIA NASAL CANNULA. NO S/S OF ACUTE DISTRESS. IV FLUIDS RUNNING AT 75 ML/HR. JALLOH CATHETER HAS CLEAR AND YELLOW URINE WITH 10CC OUTPUT. BED IS IN LOWEST, AND LOCKED POSITION. 2 SIDE RAILS UP, AND CALL LIGHT WITHIN REACH. ALL NEEDS MET. WILL CONTINUE TO ASSESS AND MONITOR.
[2017-06-14 08:00] VITALS: BP 94/62
[2017-06-14] MEDS: LACTOSE-FREE FOOD 237 ML LIQUID PO SCH ×2 (08:00→15:49)
[2017-06-14 08:26] LABS: BASOPHILS % (AUTO) 0.2 % (0.0-2.0); HEMATOCRIT 35 % (33-45); HEMOGLOBIN 11.5 g/dL (11.5-14.8); LYMPHOCYTES # (AUTO) 0.8 /CMM (0.8-4.8); LYMPHOCYTES % (AUTO) 4.9 % (20.0-44.0); MEAN CORPUSCULAR HEMOGLOBIN 28 PG (26.0-33.0); MEAN CORPUSCULAR HGB CONC 33 g/dl (31.0-36.0); MEAN CORPUSCULAR VOLUME 83 fL (82-100); MONOCYTES # (AUTO) 0.2 /CMM (0.1-1.30); MONOCYTES % (AUTO) 1.2 % (2.0-12.0); NEUTROPHILS # (AUTO) 15.5 /CMM (1.8-8.9); NEUTROPHILS % (AUTO) 93.7 % (43.0-81.0); PLATELET COUNT (AUTO) 305 /CMM (150-450); RDW COEFFICIENT OF VARIATION 15.1 (11.5-15.0); RED BLOOD CELL COUNT(AUTO) 4.18 MIL/uL (4.0-5.2); WHITE BLOOD COUNT (AUTO) 16.5 K/uL (4.3-11.0)
[2017-06-14 08:38] LABS: CALCIUM, SERUM 8.2 mg/dL (8.5-10.1); CREATININE 0.7 mg/dL (0.6-1.3); MAGNESIUM 1.5 mg/dL (1.8-2.4); PHOSPHORUS 2.7 mg/dL (2.5-4.9); POTASSIUM 3.9 mmol/L (3.5-5.1)
[2017-06-14] MEDS: VANCOMYCIN 500 MG in IV D5W 100 ML IV SCH ×2 (09:00→17:27)
[2017-06-14] MEDS: PANTOPRAZOLE 40 MG VIAL IV SCH ×2 (09:32→17:26)
[2017-06-14] MEDS: LACTOBACILLUS RHAMNOSUS GG 1 EACH CAP.SPRINK PO SCH ×2 (09:32→15:49)
[2017-06-14] MEDS: DRONABINOL (2.5 MG) 2.5 MG CAPSULE PO SCH ×2 (09:32→15:49)
[2017-06-14] MEDS: MEGESTROL ACETATE SUSP 400 MG/10 ML UDC PO SCH ×2 (09:32→15:50)
[2017-06-14] MEDS: MULTIVITAMINS,THERAGRAN 1 UDTAB TABLET PO SCH (09:32)
[2017-06-14] MEDS: DOCUSATE SODIUM LIQ 100 MG/10 ML UDC PO SCH ×2 (09:32→15:49)
[2017-06-14] MEDS: DOXYCYCLINE HYCLATE (100 MG) 100 MG TABLET PO SCH ×2 (09:32→22:00)
[2017-06-14 09:45] VITALS: BP 94/62
--- NOTE | 2017-06-14 09:49 | NUR ---
RN NOTES VANCOMYCIN HELD DUE TO HIGH VANCO TROUGH LEVEL. PHARMACY WAS INFORMED.
--- NOTE | 2017-06-14 10:15 | NUR ---
RN NOTES PT. STARTED COUGHING CONTINUOUSLY AFTER HAVING SOUP WITH S/S OF SOB. ASSESSED PT. VITAL SIGNS. PT.S SPO2 WAS 68% AND BP 88/55, AND PULSE 104. CHARGE NURSE WAS INFORMED AND PLACED PT. ON A REBREATHER MASK. RESPIRATORY THERAPIST WAS CALLED. STORAGE MANAGEMENT CONSULTANT WAS INFORMED AND ORDERS GIVEN FOR A STAT CHEST X RAY, AND ABG'S. RESPIRATORY THERAPIST ARRIVED. PT. WAS PLACED ON 15L/MIN ON REBREATHER MASK.
[2017-06-14 10:55] LABS: ABG BASE EXCESS -4.8 mmol/L; ABG PCO2 31.6 mmHg (35.0-45.0); ABG PH 7.399 (7.350-7.450); ABG PO2 58.6 mmHg (75.0-100.0); AaDO2 478.6 mmHg; COHb 0.3 % (0.5-1.5); MetHb 0.3 % (0.0-1.5); O2Hb 90.5 % (94.0-97.0); SITE, ABG Right Radial; VENT MODE, BG NRB 15L
--- NOTE | 2017-06-14 11:00 | NUR ---
RN NOTES PT. WAS SEEN AND EXAMINED BY TOOL KEEPER, AND DR. ATKINS. PER DR. ATKINS PT. NEEDS TO BE TRANSFERRED TO [facility].
[2017-06-14] MEDS: IPRATROPIUM NEB FS 0.5 MG/2.5 ML AMPUL.NEB NEB SCH ×4 (11:49→23:01)
[2017-06-14] MEDS: ALBUTEROL HALF STRENGTH 1.25 MG/3 ML VIAL.NEB NEB SCH ×4 (11:49→23:01)
[2017-06-14 12:00] VITALS: BP 114/86
--- NOTE | 2017-06-14 12:00 | NUR ---
TD/SKELP PROCESSOR OF CARE - REPORT - ROOM 102 REPORT RECEIVED FROM 3 HUMBLE AVILEZ FOR PT TO BE TRANSFERED TO [facility] D/T DESATURATION. AWAITING FOR PT'S ARRIVAL.
[2017-06-14] MEDS: Magnesium 1GM/D5W 100ML PREMIX 100 ML IV SCH ×2 (12:25→13:57)
--- NOTE | 2017-06-14 12:25 | NUR ---
TD/RECEIVING CHECKER TO [facility] PT ARRIVED VIA BED, ACCOMPANIED BY RN AND SCIENTIFIC SOFTWARE DEVELOPER, PT A/O X 1-2, TURKMEN SPEAKING. PLACED ON NON-BREATHER MASK WITH 15L O2, SATURATING @ 98%, NOTED WITH RHONCHI LUNG SOUNDS. TELE MONITORING, NOTED SINUS SINUS TACHY, HR 120, MID LINE FLUSHED, PATENT, IV INFUSION CONTINUED. JALLOH CATHETER INTACT NOTED WITH YELLOW URINE OUTPUT. PT ON NPO STATUS, SPENDING SWALLOW EVALUATION. CL WITHIN REACHED AND SAFETY MAINTAINED. ON GOING MONITORING. PT SEEN & EXAMINED BY DR. MCCARTNEY. NO NEW ORDERS RECEIVED AT THIS TIME.
--- NOTE | 2017-06-14 12:30 | NUR ---
RN NOTES REPORT WAS GIVEN TO MANNY SAM. TRANSFERRED PT. TO [facility] ROOM 102. PT. WA WEARING A REBREATHER MASK ON OXYGEN AT 15L/MIN. ALL MEDICATIONS AND BELONGINGS BROUGHT TO [facility].
[2017-06-14] MEDS ORDERED: Magnesium 1GM/D5W 100ML PREMIX 100 ML IV SCH (14:00)
[2017-06-14 16:00] VITALS: BP 102/66
--- NOTE | 2017-06-14 19:00 | NUR ---
TD/RN AM SHIFT END NOTES ALL NEEDS MET. NO ACUTE CHANGE OF CONDITION NOTED SINCE PT WAS TRANSFERRED TO [facility] EARLY THIS AFTERNOON. ALL NEEDS MET. PT ENDORSED TO PM NURSE TO CONTINUE CARE. CL WITHIN REACHED AND SAFETY MAINTAINED.
--- NOTE | 2017-06-14 19:30 | NUR ---
RN INITIAL NOTE RECEIVED PT WITH O2 SAT @ 85%-88%. PT IS A/O X 2 PAPUA [place] SPEAKING ONLY. PT IS ON O2 VIA NON REBREATHER @ 15LPM. PT SHOWS SOME SOB, DIFFICULTY BREATHING BUT NO PAIN AT THIS TIME. PT HAS AUDIBLE RHALES. NOTIFIED RT FOR DEEP SUCTION. PT HAS F/C THAT IS CLEAN DRY INTACT AND PATENT WITH YELLOW URINE DRAINING. PT HAS ALFRED MIDLINE THAT IS CLEAN DRY INTACT AND PATENT WITH KCL 20MEQNS @ 75ML/HR. BED IN LOW LOCK POSITION WITH RIALS UP X 2. WILL CONTINUE TO MONITOR PT.
--- NOTE | 2017-06-14 19:58 | NUR ---
PT ON NRB LOW O2 SAT. BS COARSE BILAT. NT SX'D THE PT. OBTAINED MODERATE AMT OF THICK YELLOW SECRETIONS.
[2017-06-14 20:00] VITALS: BP 102/63
--- NOTE | 2017-06-14 20:00 | NUR ---
RN NOTE RT AT BEDSIDE WITH SUCTION KIT. PT DEEP SUCTIONED WITH BROWN THICK MUCUS SUCTIONED. PT TOLERATED PROCEDURE WELL.
--- NOTE | 2017-06-14 20:00 | NUR ---
RN NOTE PT SAT IS @ 98% ON 15LPM NON REBREATHER.
[2017-06-14] MEDS: MIRTAZAPINE 15 MG TABLET PO SCH (22:00)
--- NOTE | 2017-06-14 22:00 | NUR ---
RN NOTE PT BEGAN TO DESAT TO 75-80 ON 15LPM NON REBREATHER. RT NOTIFIED AND PT DEEP SUCTIONED AGAIN WITH LARGE THICK MUCUS SUCTIONED. PT O2 SAT IS @ 100%.
[2017-06-15] VITALS (7 sets, daily range): BP systolic 69–114; BP diastolic 22–68
[2017-06-15] MEDS: IPRATROPIUM NEB FS 0.5 MG/2.5 ML AMPUL.NEB NEB SCH ×6 (03:07→23:30)
[2017-06-15] MEDS: ALBUTEROL HALF STRENGTH 1.25 MG/3 ML VIAL.NEB NEB SCH ×6 (03:07→23:30)
[2017-06-15] MEDS: PIPERACILLIN /TAZOBACTAM 2.25 G in IV D5W 50 ML IV SCH ×4 (05:51→23:45)
--- NOTE | 2017-06-15 06:23 | NUR ---
RN CLOSING NOTE PT REMAINS IN NO ACUTE DISTRESS IN BED. PT SAT MAINTAINED @ 98-100% ON 12LPM NON REBREATHER. ALL NEEDS MET, ALL ORDERS CARRIED OUT. WILL ENDORSE CARE TO AM RN FOR CONTINUITY OF CARE.
[2017-06-15 07:07] LABS: CALCIUM, SERUM 8.1 mg/dL (8.5-10.1); CREATININE 0.7 mg/dL (0.6-1.3); MAGNESIUM 1.9 mg/dL (1.8-2.4); POTASSIUM 3.8 mmol/L (3.5-5.1)
--- NOTE | 2017-06-15 07:10 | NUR ---
DIRECTOR FOOD SAFETY NOTES PATIENT IN BED, AWAKE. A/O X2, FOLLOW SIMPLE COMMAND. ON NON REBREATHER MASK AT 10ML/HR, TOLERATING WELL. APPEARS COMFORTABLE, NO SOB. SINUS TACH HR 108 ON THE TELE MONITOR. ALFRED MIDLINE, IVF NS + KCL 20 MEQ INFUSING AT 75ML/HR. PER NIGHT RN REPORT PATIENT IS ON NPO STATUS, FOR SWALLOW EVAL. CALL LIGHT WITHIN REACH. WILL CONT TO MONITOR.
[2017-06-15 07:30] LABS: HEMATOCRIT 28 % (33-45); HEMOGLOBIN 9.3 g/dL (11.5-14.8); LYMPHOCYTES # (AUTO) 0.6 /CMM (0.8-4.8); LYMPHOCYTES % (AUTO) 4.4 % (20.0-44.0); MEAN CORPUSCULAR HEMOGLOBIN 28 PG (26.0-33.0); MEAN CORPUSCULAR HGB CONC 34 g/dl (31.0-36.0); MEAN CORPUSCULAR VOLUME 83 fL (82-100); MONOCYTES # (AUTO) 0.2 /CMM (0.1-1.30); MONOCYTES % (AUTO) 1.5 % (2.0-12.0); NEUTROPHILS # (AUTO) 12.3 /CMM (1.8-8.9); NEUTROPHILS % (AUTO) 94.1 % (43.0-81.0); PLATELET COUNT (AUTO) 290 /CMM (150-450); RDW COEFFICIENT OF VARIATION 15.4 (11.5-15.0); RED BLOOD CELL COUNT(AUTO) 3.33 MIL/uL (4.0-5.2); WHITE BLOOD COUNT (AUTO) 13.1 K/uL (4.3-11.0)
[2017-06-15] MEDS: PANTOPRAZOLE 40 MG VIAL IV SCH ×2 (08:43→16:36)
--- NOTE | 2017-06-15 09:16 | NUR ---
PATIENT IS SEEN BY ANNELISE FOR SWALLOW EVAL, PATIENT TOLERATED WELL WITHOUT COUGHING AND VOMITING. /CYRUS RECOMMENDED MECHANICAL SOFT CHOP FINE DIET AND NECTAR THICK LIQUIDS, DIETARY INFORMED.
[2017-06-15] MEDS: LACTOSE-FREE FOOD 237 ML LIQUID PO SCH ×2 (09:23→16:42)
[2017-06-15] MEDS: MEGESTROL ACETATE SUSP 400 MG/10 ML UDC PO SCH ×2 (09:24→16:39)
[2017-06-15] MEDS: DOXYCYCLINE HYCLATE (100 MG) 100 MG TABLET PO SCH ×2 (09:24→21:01)
[2017-06-15] MEDS: LACTOBACILLUS RHAMNOSUS GG 1 EACH CAP.SPRINK PO SCH ×2 (09:24→16:39)
[2017-06-15] MEDS: MULTIVITAMINS,THERAGRAN 1 UDTAB TABLET PO SCH (09:24)
[2017-06-15] MEDS: DRONABINOL (2.5 MG) 2.5 MG CAPSULE PO SCH ×2 (09:24→16:43)
[2017-06-15] MEDS: DOCUSATE SODIUM LIQ 100 MG/10 ML UDC PO SCH ×2 (09:24→16:39)
--- NOTE | 2017-06-15 09:29 | NUR ---
ON BREATHING TREATMENT VIA NEB GIVEN BY RT. PATIENT IS NOW CURRENTLY ON OXYGEN AT 4L VIA NC, APPEARS COMFORTABLE, SATING AT 97%, NO SOB.
--- NOTE | 2017-06-15 14:17 | NUR ---
ADDENDUM WRONG ENTRY FOR V/S.
[2017-06-15] MEDS: Potassium Chloride 20 MEQ in IV NS 0.9% 1,000 ML IV PRN (15:08)
[2017-06-15] MEDS: VENLAFAXINE XR 37.5 MG CAP.SR.24H PO SCH (15:11)
[2017-06-15] MEDS: ACETYLCYSTEINE 10% SOLN 400 MG/4 ML VIAL NEB SCH ×2 (15:13→23:30)
--- NOTE | 2017-06-15 17:01 | NUR ---
VANCOMYCIN TROUGH 21 ON 06/14/17 CALLED SPOKE TO [facility]/PHARMACY, CONFIRMED DOSE TO ADMINISTER TODAY AT 1700, PER [facility]ARM[facility]Y TO GIVE SAME DOSE OF VANCOMYCIN 500MG IV.
[2017-06-15] MEDS: VANCOMYCIN 500 MG in IV D5W 100 ML IV SCH (17:04)
--- NOTE | 2017-06-15 18:31 | NUR ---
COMMUNITY HEALTH PROMOTER CLOSING NOTES PATIENT IN BED, A/O X2. ON TELE MONITOR SINUS TACH HR 117, DENIES ANY DISCOMFORT. ON OXYGEN AT 2L NC, TOLERATING WELL, NO SOB DURING THE SHIFT, SATING 98%. ON ANTIBIOTIC IV WITH NO ADVERSE REACTION, AFEBRILE. ALFRED MIDLINE PATENT AND INTACT. TOLERATING CURRENT DIET MECHANICAL SOFT CHOP FINE AND NECTAR THICK LIQUIDS, NO EPISODE OF VOMITING OR C/O NAUSEA DURING THE SHIFT, MAINTAIN HOB ELEVATED. PLACE CALL LIGHT WITHIN REACH. CONT HOSPITALIZATION PER CLARENCE CUNNINGHAM. Addendum: 06/15/17 at 1849 by AMAIRANI COLÓN RN WILL ENDORSE TO ORACLE APEX DEVELOPER RN FOR JOVANA.
--- NOTE | 2017-06-15 19:30 | NUR ---
[facility]/RN NOTES: RECEIVED PT. IN BED A/O X 4 SPEAKS TAMAZIGHT/ERITREAN. NO FACIAL GRIMACES OR MOANING NOTED. O2 @ 2LPM VIA N/C SAT 98%. HAS A MIDLINE ON ALFRED PATENT AND INTACT INFUSING IVF AT 75ML/HR W/ NO S/S OF INFECTION/INFILTRATION NOTED. CALL LIGHT W/REACH. ALL NEEDS MEET. WILL CONTINUE TO MONITOR.
--- NOTE | 2017-06-15 20:00 | NUR ---
[facility]/RN NOTES: PT. ON TELE MONITOR SINUS TACHY 110'S.
[2017-06-15] MEDS: MIRTAZAPINE 15 MG TABLET PO SCH (21:01)
[2017-06-16] VITALS (8 sets, daily range): BP systolic 123–135; BP diastolic 69–87
[2017-06-16] MEDS: ALBUTEROL HALF STRENGTH 1.25 MG/3 ML VIAL.NEB NEB SCH ×6 (04:19→23:30)
[2017-06-16] MEDS: IPRATROPIUM NEB FS 0.5 MG/2.5 ML AMPUL.NEB NEB SCH ×6 (04:19→23:30)
[2017-06-16] MEDS: PIPERACILLIN /TAZOBACTAM 2.25 G in IV D5W 50 ML IV SCH ×4 (05:05→23:22)
[2017-06-16] MEDS: Potassium Chloride 20 MEQ in IV NS 0.9% 1,000 ML IV PRN ×2 (06:52→23:41)
--- NOTE | 2017-06-16 07:13 | NUR ---
[facility]/RN NOTES: PT. IN BED SLEEPING W/ O2 @ 2LPM VIA N/C SAT. 98% . DENIES ANY C/O PAIN OR DISCOMFORT AT THIS TIME. W/ FC INPLACE DRAINING VIA GRAVITY CLEAR YELLOW. REPORT GIVEN TO NEXT SHIFT NURSE FOR JOVANA.
--- NOTE | 2017-06-16 07:27 | NUR ---
[facility]/RN NOTES: RECEIVED PT. IN BED RESTING COMFORTABLY . O2 @ 2LPM VIA N/C SAT 98%. HAS A MIDLINE ON ALFRED PATENT AND INTACT INFUSING IVF AT 75ML/HR W/ NO S/S OF INFECTION/INFILTRATION NOTED. CALL LIGHT W/REACH. ALL NEEDS MEET. WILL CONTINUE TO MONITOR. ON TELE MONITOR SB 58 LT UA AV SHUNT WITH BRUIT SOUND , BED IN LOWEST AND LOCKED POSITION CALL LIGHT WITHIN REACH Addendum: 06/16/17 at 0732 by SUKHJINDER ZALDIVAR RN WRING ENTRY WRONG PATIENT Addendum: 06/16/17 at 0911 by SUKHJINDER ZALDIVAR RN CORRECTION , ON TELE MONITOR ST 110 NO AV SHUNT
[2017-06-16] MEDS: ACETYLCYSTEINE 10% SOLN 400 MG/4 ML VIAL NEB SCH ×3 (07:28→23:30)
[2017-06-16] MEDS: LACTOBACILLUS RHAMNOSUS GG 1 EACH CAP.SPRINK PO SCH ×2 (08:42→16:38)
[2017-06-16] MEDS: VENLAFAXINE XR 37.5 MG CAP.SR.24H PO SCH (08:42)
[2017-06-16] MEDS: MULTIVITAMINS,THERAGRAN 1 UDTAB TABLET PO SCH (08:42)
[2017-06-16] MEDS: MEGESTROL ACETATE SUSP 400 MG/10 ML UDC PO SCH ×2 (08:42→16:38)
[2017-06-16] MEDS: DOXYCYCLINE HYCLATE (100 MG) 100 MG TABLET PO SCH ×2 (08:43→22:16)
[2017-06-16] MEDS: DRONABINOL (2.5 MG) 2.5 MG CAPSULE PO SCH ×2 (08:43→17:09)
[2017-06-16] MEDS: BOOST FOOD- BERRY 237 ML BOX PO SCH ×2 (08:48→17:08)
[2017-06-16] MEDS: DOCUSATE SODIUM LIQ 100 MG/10 ML UDC PO SCH ×2 (08:51→16:38)
[2017-06-16] MEDS: PANTOPRAZOLE 40 MG VIAL IV SCH ×2 (08:51→17:09)
--- NOTE | 2017-06-16 09:06 | NUR ---
[facility] RN NOTE ST AT BEDSIDE , ABLE TO TOLERATE REGULAR FLUIDS , WILL CONT TO MONITOR CLOSELY
[2017-06-16 09:56] LABS: ABG BASE EXCESS -1.4 mmol/L; ABG OXYGEN SATURATION 94.8 % (92.0-98.5); ABG PCO2 30.6 mmHg (35.0-45.0); AaDO2 153.4 mmHg; COHb 0.3 % (0.5-1.5); MetHb 0.7 % (0.0-1.5); O2Hb 93.9 % (94.0-97.0); SITE, ABG Right Brachial; VENT MODE, BG nasal cannula
--- NOTE | 2017-06-16 10:24 | NUR ---
[facility] RN NOTE SEEN BY DR ATKINS AT BEDSIDE, AWARE THAT PATIENT HAS VERY POOR APPETITE
--- NOTE | 2017-06-16 11:00 | NUR ---
[facility] RN NOTE ABG DONE, DR HIGUERA AWARE OF RESULT
--- NOTE | 2017-06-16 11:51 | NUR ---
[facility] RN NOTE SEEN BY KELLY SMITH DNP NOTIFIED THAT PATIENT STILL HAS VERY POOR APETITE, ATE 15% OF FOOD, STATED POSSIBLE DISCHARGE TO SNF WITH ENCOURAGE TO EAT FREQUENTLY , WILL F\U WITH DISTANCE EDUCATION FACULTY LIAISON
[2017-06-16] MEDS ORDERED: [UNRECOGNIZED DRUG - OTHER] PO (12:19)
[2017-06-16] MEDS ORDERED: DOCU50LI PO (12:19)
[2017-06-16] MEDS ORDERED: MIRT15TA PO (12:19)
[2017-06-16] MEDS ORDERED: DRON2.5C3 PO (12:19)
[2017-06-16] MEDS ORDERED: DOXY100T2 PO (12:19)
[2017-06-16] MEDS ORDERED: ACET325T53 PO (12:19)
[2017-06-16] MEDS ORDERED: VENL37.55 PO (12:19)
[2017-06-16] MEDS ORDERED: MEGE400O4 PO (12:19)
--- NOTE | 2017-06-16 13:18 | NUR ---
[facility] RN NOTE SPOKE WITH PERCY HENRIQUEZ ABOUT DISCHARGE ,STATED THAT WILL WORK ON IT ,WILL F\U
--- NOTE | 2017-06-16 15:48 | NUR ---
[facility] RN NOTE SPOKE WITH MARTINEZ REVENUE MANAGER ABOUT DISCHARGE ,STATED NO BED AVAILABLE, WILL BE TOMORROW , CALLED TO KELLY SMITH DNP, NOTIFIED THAT PATIENT CANT DISCHARGE TODAY TO SNF ,WILL F\U TOMORROW
--- NOTE | 2017-06-16 17:30 | NUR ---
[facility] RN NOTE PER RAILROAD CAR REPAIRMAN WILL HOLD DISCHARGE TILL TOMORROW M AND PER PHARMACIST OK TO GIVE MERI JEREZ LEVEL 21
[2017-06-16] MEDS: VANCOMYCIN 500 MG in IV D5W 100 ML IV SCH (17:58)
--- NOTE | 2017-06-16 18:35 | NUR ---
DEOILING MACHINE OPERATOR NOTE FAMILY AT BEDSIDE, CONT ON IVF ORDERED NOT IN ACUTE DISTRESS
--- NOTE | 2017-06-16 19:56 | NUR ---
TELE 1 RN NOTE PT IN BED A/A/O X 2, ROMANSH SPEAKING. NO DISTRESS OR DISCOMFORT NOTED. FAMILY AT BED SIDE. PT DENIES PAIN. ON O2 2L VIA N/C O2 SAT 100 %. KEPT HOB ELEVATED 35 DEGREES. F/C INTACT AND PATENT DRAINING YELLOWISH COLOR URINE. IVF NS WITH 20 MEQ KCL @ 75 ML/HR INFUSING WELL, NO S/S OF INFILTRATION NOTED. ON TELE SINUS TACH HR 102. SIDE RAILS UP X 3 AND CALL LIGHT WITHIN REACH. VSS. CONTINUE TO MONITOR HER.
[2017-06-16] MEDS: MIRTAZAPINE 15 MG TABLET PO SCH (22:16)
[2017-06-16] MEDS ORDERED: IV PREMIX NS +20MEQ KCL 1 L IV ONE (23:35)
[2017-06-17] VITALS: BP 135/81
[2017-06-17] MEDS: IPRATROPIUM NEB FS 0.5 MG/2.5 ML AMPUL.NEB NEB SCH ×6 (03:30→23:51)
[2017-06-17] MEDS: ALBUTEROL HALF STRENGTH 1.25 MG/3 ML VIAL.NEB NEB SCH ×6 (03:30→23:51)
[2017-06-17 04:00] VITALS: BP 135/83
[2017-06-17] MEDS: PIPERACILLIN /TAZOBACTAM 2.25 G in IV D5W 50 ML IV SCH ×3 (05:28→16:55)
--- NOTE | 2017-06-17 06:18 | NUR ---
TELE 1 RN NOTE 102 PT IN BED AWAKE. NO DISTRESS OR DISCOMFORT NOTED. PT DENIES PAIN. IVF NS WITH 20 MEQ KCL INFUISNG WELL, NO S/S OF INFILTRATION NOTED. ON TELE ST HR 106. SITDE RAILS UP X 3 AND CALL LIGHT WITHIN REACH. VSS. REPOSITION HER Q2H. KEPT HER DRY AND CLEAN. ALL NEEDS ATTENDED. WILL ENDORSE TO DAY SHIFT NURSE FOR CONTINUE TO CARE.
[2017-06-17 08:00] VITALS: BP 137/60
[2017-06-17] MEDS: ACETYLCYSTEINE 10% SOLN 400 MG/4 ML VIAL NEB SCH ×3 (08:09→23:51)
[2017-06-17] MEDS: DRONABINOL (2.5 MG) 2.5 MG CAPSULE PO SCH ×2 (08:44→16:36)
[2017-06-17] MEDS: DOCUSATE SODIUM LIQ 100 MG/10 ML UDC PO SCH ×2 (08:44→16:35)
[2017-06-17] MEDS: MULTIVITAMINS,THERAGRAN 1 UDTAB TABLET PO SCH (08:44)
[2017-06-17] MEDS: DOXYCYCLINE HYCLATE (100 MG) 100 MG TABLET PO SCH (08:44)
[2017-06-17] MEDS: MEGESTROL ACETATE SUSP 400 MG/10 ML UDC PO SCH ×2 (08:44→16:35)
[2017-06-17] MEDS: LACTOBACILLUS RHAMNOSUS GG 1 EACH CAP.SPRINK PO SCH ×2 (08:44→16:35)
[2017-06-17] MEDS: VENLAFAXINE XR 37.5 MG CAP.SR.24H PO SCH (08:45)
[2017-06-17] MEDS: BOOST FOOD- BERRY 237 ML BOX PO SCH ×2 (08:50→17:00)
[2017-06-17] MEDS: PANTOPRAZOLE 40 MG VIAL IV SCH ×2 (08:50→16:35)
--- NOTE | 2017-06-17 09:33 | NUR ---
TURNING MACHINE OPERATOR NOTES RECEIVED PT ON BED SLEEPING, ALERT ORIENTED X2. ON NASAL CANNULA 2LPM TOLERATING WELL. NO CHECK WEIGHER ST 106HR. IV ACCESS ON ALFRED MIDLINE NS WITH 20MEQ KCL @75ML/HR RUNNING WELL. HEAD OF BED ELEVATED. ALARM BED ON. SIDE RAILS UP. WILL CONTINUE TO MONITOR PT CLOSELY.
--- NOTE | 2017-06-17 11:30 | NUR ---
RN NOTES / TRANSFERRED FROM [facility] RECEIVED PATIENT FROM [facility]. PATIENT IS IN ROOM 207-1. PATIENT IS AWAKE, IN HER BED. BED IN LOW POSITION, LOCKED AND TWO SIDE RAILS ARE UP. CALL LIGHT WITHIN REACH FOR SAFETY. WILL CONTINUE TO MONITOR AND ASSESS PATIENT.
[2017-06-17 16:00] VITALS: BP 129/81
[2017-06-17] MEDS: Potassium Chloride 20 MEQ in IV NS 0.9% 1,000 ML IV PRN (18:15)
--- NOTE | 2017-06-17 18:58 | NUR ---
RN CLOSING NOTES PATIENT IS ALERT AND ORIENTED TO NAME, PLACE AND TIME. NO SIGNS AND SYMPTOMS OF DISTRESS. BREATHING IS UNLABORED AND EVEN. BED IN LOW POSITION, LOCKED AND TWO SIDE RAILS ARE UP FOR SAFETY. CALL LIGHT WITHIN REACH. ALL NURSING CARE ANTICIPATED AND ATTENDED FOR. IV SITE IS INTACT AND PATENT. WILL ENDORSE TO PHARMACY ASSISTANT NURSE
[2017-06-17 20:00] VITALS: BP 129/76
[2017-06-17] MEDS: MIRTAZAPINE 15 MG TABLET PO SCH (22:00)
[2017-06-18] MEDS: IPRATROPIUM NEB FS 0.5 MG/2.5 ML AMPUL.NEB NEB SCH ×5 (04:10→20:32)
[2017-06-18] MEDS: ALBUTEROL HALF STRENGTH 1.25 MG/3 ML VIAL.NEB NEB SCH ×5 (04:10→20:32)
--- NOTE | 2017-06-18 06:53 | NUR ---
MS RN NOTES AWAKE & ALERT. NOT IN ANY DISTRESS. NO SOB NOTED. NO S/SX OF ANY PAIN OR DISCOMFORT AT THIS TIME. WITH IVF INFUSING WELL. AM CARE DONE. MONITORED ACCORDINGLY. CALL LIGHT WITHIN REACH. BED IN LOWEST POSITION. SR UP X 2 FOR SAFETY WITH BED ALARM ON. WILL ENDORSE TO NEXT SHIFT.
--- NOTE | 2017-06-18 07:59 | NUR ---
MS RN OPENING NOTE PATIENT IS ALERT AND ORIENTED x2. NODS YES OR NO, NON-VERBAL. HAS JALLOH CATHETER PRESENT. MECH SOFT DIET. IV INTACT AND PATENT NO REDNESS OR SWELLING NOTED. POSSIBLE DISCHARGE TODAY WILL FOLLOW UP. PER CASE MANAGEMENT WANTS TO SPEAK TO DAUGHTER IN REGARDS TO POSSIBLE PLACEMENT. WILL CONTINUE TO MONITOR THROUGHOUT SHIFT
[2017-06-18 08:00] VITALS: BP 135/84
[2017-06-18] MEDS: DRONABINOL (2.5 MG) 2.5 MG CAPSULE PO SCH ×2 (09:00→16:59)
[2017-06-18] MEDS: PANTOPRAZOLE 40 MG VIAL IV SCH ×2 (09:17→17:00)
[2017-06-18] MEDS: DOCUSATE SODIUM LIQ 100 MG/10 ML UDC PO SCH ×2 (09:17→16:59)
[2017-06-18] MEDS: LACTOBACILLUS RHAMNOSUS GG 1 EACH CAP.SPRINK PO SCH ×2 (09:17→16:59)
[2017-06-18] MEDS: MEGESTROL ACETATE SUSP 400 MG/10 ML UDC PO SCH ×2 (09:17→16:59)
[2017-06-18] MEDS: BOOST FOOD- BERRY 237 ML BOX PO SCH ×2 (09:17→17:00)
[2017-06-18] MEDS: VENLAFAXINE XR 37.5 MG CAP.SR.24H PO SCH (09:17)
[2017-06-18] MEDS: MULTIVITAMINS,THERAGRAN 1 UDTAB TABLET PO SCH (09:17)
[2017-06-18] MEDS: ACETYLCYSTEINE 10% SOLN 400 MG/4 ML VIAL NEB SCH ×2 (09:56→15:30)
[2017-06-18] MEDS: Potassium Chloride 20 MEQ in IV NS 0.9% 1,000 ML IV PRN (11:47)
[2017-06-18 16:00] VITALS: BP 126/82
--- NOTE | 2017-06-18 16:18 | NUR ---
RT PT REFUSE TX. SP02 96% HR 104 RR 20
--- NOTE | 2017-06-18 18:36 | NUR ---
MS RN CLOSING NOTE PATIENT IS ALERT AND ORIENTEDX2, NODS HEAD FOR YES OR NO. ABLE TO COMMUNICATE NEEDS. CALL LIGHT WITHIN REACH AT ALL TIMES. SAFETY MEASURES IMPLEMENTED. ALL DUE MEDICATIONS GIVEN ORDERED, LATER ON PATIENT REFUSED AFTERNOON MEDICATIONS. ALL NURSING CARE NEEDS ATTENDED TO NEEDED. PATIENT HAS JALLOH IN AT THIS TIME, 600 ML OUTPUT. MIDLINE INTACT AND PATENT NO REDNESS OR SWELLING NOTED, IV FLUIDS RUNNING AT 75 ML/HR. AWAITING DISCHARGE PLACEMENT, CASE MANAGEMENT AWARE. WILL ENDORSE TO [employer] MILL OPERATOR NURSE FOR J[facility]NA
[2017-06-18 20:15] VITALS: BP 128/68
--- NOTE | 2017-06-18 20:59 | NUR ---
MS RN NOTES NO SIGNIFICANT CHANGES NOTED. REPORT GIVEN TO KATHLEEN SAM FOR CONTINUITY OF CARE.
--- NOTE | 2017-06-18 21:00 | NUR ---
RN OPEN NOTES RECEIVED PATIENT AWAKE IN BED. A/O X2. NO SIGNS OF DISTRESS OR DISCOMFORT. BREATHING EVEN AND UNLABORED. HAS ALFRED MIDLINE WITH KCL 20MEQ W/NS INFUSING, PATENT AND INTACT, NO SIGNS OF REDNESS OR INFILTRATION. HAS F/C INTACT, WITH CLEAR YELLOW FLUID DRAINING. BED IN LOW LOCKED POSITION WITH SIDE RAILS X3. CALL LIGHT WITHIN REACH. WILL CONTINUE TO MONITOR.
[2017-06-18] MEDS: MIRTAZAPINE 15 MG TABLET PO SCH (22:00)
--- NOTE | 2017-06-18 22:00 | NUR ---
RN NOTES PATIENT REFUSED REMERON 7.5MG X3, NODS HER HEAD NO WHEN TRYING TO ADMINISTER MEDICATION. PATIENT EDUCATION REINFORCED. WILL CONTINUE TO MONITOR.
[2017-06-19] MEDS ORDERED: ACETYLCYSTEINE 10% SOLN 400 MG/4 ML VIAL ONE (00:07)
[2017-06-19] MEDS: IPRATROPIUM NEB FS 0.5 MG/2.5 ML AMPUL.NEB NEB SCH ×7 (00:09→22:45)
[2017-06-19] MEDS: ACETYLCYSTEINE 10% SOLN 400 MG/4 ML VIAL NEB SCH ×4 (00:09→22:45)
[2017-06-19] MEDS: ALBUTEROL HALF STRENGTH 1.25 MG/3 ML VIAL.NEB NEB SCH ×7 (00:09→22:45)
--- NOTE | 2017-06-19 06:50 | NUR ---
RN CLOSING NOTES PATIENT RESTING IN BED, EASILY AROUSABLE. A/O X2. NO SIGNS OF DISTRESS OR DISCOMFORT. BREATHING EVEN AND UNLABORED. HAS ALFRED MIDLINE WITH KCL 20MEQ W/NS INFUSING, PATENT AND INTACT, NO SIGNS OF REDNESS OR INFILTRATION. HAS F/C INTACT, WITH CLEAR YELLOW FLUID DRAINING. NO SIGNIFICANT CHANGES THROUGH THE NIGHT. ALL NEEDS MET. REPOSITIONED PATIENT Q2H AND PRN. BED IN LOW LOCKED POSITION WITH SIDE RAILS X3. CALL LIGHT WITHIN REACH. WILL ENDORSE TO AM SHIFT FOR JOVANA.
--- NOTE | 2017-06-19 07:50 | NUR ---
MS RN OPENING NOTE PATIENT IS ALERT AND ORIENTED x2. NON-VERBAL, NODS YES OR NO. CALL LIGHT WITHIN REACH. SAFETY MEASURES IMPLEMENTED. NO SOB OR DISTRESS NOTED. NO PAIN NOTED AT THIS TIME. MIDLINE INTACT AND PATENT WITH FLUIDS RUNNING AT 75 ML/HR. JALLOH CATHETER IN PLACE AT THIS TIME. NO SEDIMENT NOTED. WILL ENCOURAGE PO INTAKE THROUGHOUT SHIFT.
[2017-06-19 08:00] VITALS: BP 136/86
[2017-06-19] MEDS: MULTIVITAMINS,THERAGRAN 1 UDTAB TABLET PO SCH (09:00)
[2017-06-19] MEDS: PANTOPRAZOLE 40 MG VIAL IV SCH ×2 (09:00→17:00)
[2017-06-19] MEDS: MEGESTROL ACETATE SUSP 400 MG/10 ML UDC PO SCH ×2 (09:00→17:00)
[2017-06-19] MEDS: DRONABINOL (2.5 MG) 2.5 MG CAPSULE PO SCH ×2 (09:00→17:00)
[2017-06-19] MEDS: VENLAFAXINE XR 37.5 MG CAP.SR.24H PO SCH (09:00)
[2017-06-19] MEDS: DOCUSATE SODIUM LIQ 100 MG/10 ML UDC PO SCH ×2 (09:00→17:00)
[2017-06-19] MEDS: LACTOBACILLUS RHAMNOSUS GG 1 EACH CAP.SPRINK PO SCH ×2 (09:00→17:00)
[2017-06-19] MEDS: BOOST FOOD- BERRY 237 ML BOX PO SCH ×2 (09:06→17:00)
--- NOTE | 2017-06-19 09:18 | NUR ---
MS RN NOTE PATIENT IS REFUSING MEDICATION AT THIS TIME. ATTEMPTED TO GIVE MEDS X3. STILL REFUSING WILL LET MD KNOW
[2017-06-19] MEDS: Potassium Chloride 20 MEQ in IV NS 0.9% 1,000 ML IV PRN (12:22)
[2017-06-19 16:00] VITALS: BP 124/71
--- NOTE | 2017-06-19 17:00 | NUR ---
MS RN NOTE PATIENT REFUSING MEDICATION AGAIN X3. WILL ENDORSE TO DISPLAY ARTIST NURSE
--- NOTE | 2017-06-19 18:46 | NUR ---
MS RN CLOSING NOTE PATIENT IS ALERT AND ORIENTED x2, NON-VERBAL, RESPONDS WITH YES OR NO NODS. PATIENT REFUSED ALL MEDICATIONS TODAY. CALL LIGHT WITHIN REACH AT ALL TIMES. SAFETY MEASURES IMPLEMENTED. BED REST. JALLOH CATHETER IN PLACE. AWAITING DISCHARGE PLACEMENT. ALFRED MIDLINE INTACT AND PATENT NO REDNESS OR SWELLING WITH FLUIDS RUNNING AT 75 ML/HR TOLERATING WELL. WILL ENDORSE TO BOAT FINISHER NURSE FOR JOVANA
--- NOTE | 2017-06-19 19:50 | NUR ---
MS RN NOTE: PATIENT RESTING IN BED, NO ACUTE DISTRESS NOTED. BREATHING EVEN AND UNLABORED, NO SOB NOTED. MIDLINE TO ALFRED IN PLACE, INFUSING NS WITH 20 MEQ KCL AT 75 ML/HR. JALLOH CATHETER IN PLACE, EMPTY AT THIS TIME. BED LOCKED AND IN LOWEST POSITION, CALL LIGHT IN REACH. WILL CONTINUE TO MONITOR.
[2017-06-19 20:00] VITALS: BP 116/67
[2017-06-19] MEDS: MIRTAZAPINE 15 MG TABLET PO SCH (22:00)
--- NOTE | 2017-06-19 22:15 | NUR ---
MS RN NOTE: PATIENT REFUSED REMERON MEDICATION. EXPLAINED RISK AND BENEFITS, BUT PATIENT CONTINUES TO REFUSE MEDICATION. WILL CONTINUE TO MONITOR.
[2017-06-20] MEDS: IPRATROPIUM NEB FS 0.5 MG/2.5 ML AMPUL.NEB NEB SCH ×5 (02:43→21:44)
[2017-06-20] MEDS: ALBUTEROL HALF STRENGTH 1.25 MG/3 ML VIAL.NEB NEB SCH ×5 (02:43→21:44)
[2017-06-20] MEDS: Potassium Chloride 20 MEQ in IV NS 0.9% 1,000 ML IV PRN ×2 (03:44→20:16)
--- NOTE | 2017-06-20 06:15 | NUR ---
MS RN NOTE: PATIENT RESTING IN BED, NO ACUTE DISTRESS NOTED. BREATHING EVEN AND UNLABORED, NO SOB NOTED. MIDLINE TO ALFRED IN PLACE, INFUSING NS WITH 20 MEQ KCL AT 75 ML/HR. JALLOH CATHETER IN PLACE. BED LOCKED AND IN LOWEST POSITION, CALL LIGHT IN REACH. WILL ENDORSE TO DAY NURSE TO CONTINUE WITH PLAN OF CARE.
--- NOTE | 2017-06-20 07:30 | NUR ---
MS/RN Patient received Patient received from shift manager. Appears comfortable, in no distress, bed in low setting, side rails X3 in upright position, call light within reach. Will continue to monitor.
[2017-06-20] MEDS ORDERED: ACETYLCYSTEINE 10% SOLN 400 MG/4 ML VIAL NEB SCH (07:35)
[2017-06-20 08:00] VITALS: BP 124/76
[2017-06-20] MEDS: MEGESTROL ACETATE SUSP 400 MG/10 ML UDC PO SCH ×2 (08:38→16:27)
[2017-06-20] MEDS: LACTOBACILLUS RHAMNOSUS GG 1 EACH CAP.SPRINK PO SCH ×2 (08:38→16:27)
[2017-06-20] MEDS: DOCUSATE SODIUM LIQ 100 MG/10 ML UDC PO SCH ×2 (08:38→16:27)
[2017-06-20] MEDS: DRONABINOL (2.5 MG) 2.5 MG CAPSULE PO SCH ×2 (08:38→16:27)
[2017-06-20] MEDS: BOOST FOOD- BERRY 237 ML BOX PO SCH ×2 (08:38→16:28)
[2017-06-20] MEDS: MULTIVITAMINS,THERAGRAN 1 UDTAB TABLET PO SCH (08:38)
[2017-06-20] MEDS: VENLAFAXINE XR 37.5 MG CAP.SR.24H PO SCH (08:38)
[2017-06-20] MEDS: PANTOPRAZOLE 40 MG VIAL IV SCH ×2 (08:38→16:27)
--- NOTE | 2017-06-20 09:00 | NUR ---
MS/RN Meal percentage 50% of breakfast eaten.
--- NOTE | 2017-06-20 11:00 | NUR ---
MS/RN Skin assessment Skin assessment carried out, small open area noted on sacrum, picture taken and placed in chart.
[2017-06-20 11:43] LABS: HEMATOCRIT 26 % (33-45); HEMOGLOBIN 8.7 g/dL (11.5-14.8); MONOCYTES # (AUTO) 0.3 /CMM (0.1-1.30)
[2017-06-20 11:46] LABS: BASOPHILS % (AUTO) 0.3 % (0.0-2.0); EOSINOPHILS % (AUTO) 0.5 % (0.0-6.0); LYMPHOCYTES % (AUTO) 21.7 % (20.0-44.0); MEAN CORPUSCULAR HEMOGLOBIN 28 PG (26.0-33.0); MEAN CORPUSCULAR HGB CONC 34 g/dl (31.0-36.0); MEAN CORPUSCULAR VOLUME 82 fL (82-100); MONOCYTES % (AUTO) 6.7 % (2.0-12.0); NEUTROPHILS # (AUTO) 3.5 /CMM (1.8-8.9); NEUTROPHILS % (AUTO) 70.8 % (43.0-81.0); PLATELET COUNT (AUTO) 268 /CMM (150-450); RDW COEFFICIENT OF VARIATION 14.3 (11.5-15.0); RED BLOOD CELL COUNT(AUTO) 3.12 MIL/uL (4.0-5.2); WHITE BLOOD COUNT (AUTO) 4.8 K/uL (4.3-11.0)
--- NOTE | 2017-06-20 12:00 | NUR ---
MS/RN S/B Parker Pollard Seen by Parker Pollard - [employer] ordered for tomorrow.
[2017-06-20 12:02] LABS: CALCIUM, SERUM 7.7 mg/dL (8.5-10.1); CREATININE 0.6 mg/dL (0.6-1.3); MAGNESIUM 1.4 mg/dL (1.8-2.4); PHOSPHORUS 2.7 mg/dL (2.5-4.9); POTASSIUM 4.1 mmol/L (3.5-5.1)
--- NOTE | 2017-06-20 13:00 | NUR ---
MS/RN Meal percentage 25% lunch eaten with encouragement.
[2017-06-20 16:00] VITALS: BP 137/78
--- NOTE | 2017-06-20 18:00 | NUR ---
MS/RN Meal percentage 25% dinner eaten.
--- NOTE | 2017-06-20 18:30 | NUR ---
MS/RN Turn and reposition Patient has been turned and repositioned every 2-3 hours throughout the shift to prevent skin breakdown. Skin kept clean and dry with barrier cream used at each diaper change.
--- NOTE | 2017-06-20 19:00 | NUR ---
MS/RN End note No changes at this time, will endorse to ironer or presser.
--- NOTE | 2017-06-20 19:30 | NUR ---
RN NOTE; RECEIVED PT IN BED AWAKE AND RESPONSIVE. OX1. BREATHING EVELY. NO SOB. NAD .SKIN WARM AND DRY. NO C/O PAIN OR DISCOMFORT. F/C IN PLACE. DRAINING CLEAR YELLOW URINE. OFFERED FOOD/ FLUID WHICH REFUSED BY PT. NEEDS MET, BED LOW LOCKED. CALL LIGHT WITHIN REACH. WILL CONT TO MONITOR,
--- NOTE | 2017-06-20 20:42 | NUR ---
CALLED RT AND INFORMED THEM REGARDING BREATHING TX.
[2017-06-20] MEDS: MIRTAZAPINE 15 MG TABLET PO SCH (21:33)
[2017-06-21] MEDS: IPRATROPIUM NEB FS 0.5 MG/2.5 ML AMPUL.NEB NEB SCH ×7 (00:28→22:56)
[2017-06-21] MEDS: ALBUTEROL HALF STRENGTH 1.25 MG/3 ML VIAL.NEB NEB SCH ×7 (00:28→22:56)
--- NOTE | 2017-06-21 06:26 | NUR ---
PT IN BED SLEEPING, AROUSES EASILY. BREATHING EVENLY. NO SOB. NO ACUTE CHANGES OVER THE NIGHT. F/C IN PLACE DRAINING CLEAR YELLOW URINE. NO C/O PAIN OR DISCOMFORT, ASSISTED W/ ADLS AND REPOSITIONING , CLEANED AND DRIED. BED LOW LOCKED .CALL LIGHT WITHIN REACH.W ILL CONT TO MONITOR AND WILL ENDORSE TO AM SHIFT FOR JOVANA.
--- NOTE | 2017-06-21 07:20 | NUR ---
RECEIVED REPORT AT THE BEDSIDE. PATIENT IS SLEEPING. NO SOB OR DISTRESS NOTED AT THIS TIME. PATIENT DOES NOT APPEAR TO BE IN PAIN, NO FACIAL GRIMACE NOTED. BED IS IN A LOW POSITION, CALL LIGHT WITHIN PATIENT REACH. WILL CONTINUE TO MONITOR.
[2017-06-21 08:00] VITALS: BP 143/80
[2017-06-21] MEDS: BOOST FOOD- BERRY 237 ML BOX PO SCH ×2 (08:16→16:58)
[2017-06-21] MEDS: MEGESTROL ACETATE SUSP 400 MG/10 ML UDC PO SCH ×3 (08:16→16:59)
[2017-06-21] MEDS: DRONABINOL (2.5 MG) 2.5 MG CAPSULE PO SCH ×3 (08:17→16:59)
[2017-06-21] MEDS: LACTOBACILLUS RHAMNOSUS GG 1 EACH CAP.SPRINK PO SCH ×3 (08:17→16:59)
[2017-06-21] MEDS: PANTOPRAZOLE 40 MG VIAL IV SCH ×2 (08:17→16:09)
[2017-06-21] MEDS: DOCUSATE SODIUM LIQ 100 MG/10 ML UDC PO SCH ×3 (08:17→16:59)
[2017-06-21] MEDS: VENLAFAXINE XR 37.5 MG CAP.SR.24H PO SCH ×2 (08:17→08:29)
[2017-06-21] MEDS: MULTIVITAMINS,THERAGRAN 1 UDTAB TABLET PO SCH ×2 (08:17→08:29)
[2017-06-21] MEDS: Potassium Chloride 20 MEQ in IV NS 0.9% 1,000 ML IV PRN (08:21)
--- NOTE | 2017-06-21 08:38 | NUR ---
PT REFUSED TO TAKE HER MEDICATIONS. ATTEMPTED SEVERAL TIMES AND CRUSHED MEDS WITH APPLESAUCE, BUT PATIENT REFUSES. WILL INFORM MD.
[2017-06-21] MEDS: Magnesium 1GM/D5W 100ML PREMIX 100 ML IV SCH ×2 (13:24→14:32)
[2017-06-21 16:00] VITALS: BP 137/76
--- NOTE | 2017-06-21 17:00 | NUR ---
INFORMED PT THAT HER EVENING MEDICATIONS ARE DUE. PATIENT STATES "NO." EXPLAINED TO THE PATIENT X3 THAT THE MEDICATIONS ARE NEEDED, BUT THE PATIENT SHAKES HER HEAD AND STATES "NO I DONT WANT THEM."
--- NOTE | 2017-06-21 17:49 | NUR ---
DR MCKINLEY PLACED AN ORDER FOR DC. TONE BROWN CM, TO SEE IF THE PT HAS PLACEMENT. WAITING FOR REPLY.
[2017-06-21 20:00] VITALS: BP 124/72
[2017-06-21] MEDS: MIRTAZAPINE 15 MG TABLET PO SCH (21:59)
--- NOTE | 2017-06-21 22:10 | NUR ---
MS RN NOTE: PATIENT REFUSED REMERON MEDICATION. EXPLAINED RISK AND BENEFITS, BUT PATIENT CONTINUES TO REFUSE MEDICATION. WILL CONTINUE TO MONITOR.
[2017-06-22] MEDS: ALBUTEROL HALF STRENGTH 1.25 MG/3 ML VIAL.NEB NEB SCH ×6 (03:10→22:15)
[2017-06-22] MEDS: IPRATROPIUM NEB FS 0.5 MG/2.5 ML AMPUL.NEB NEB SCH ×6 (03:10→22:14)
[2017-06-22 08:00] VITALS: BP 128/67
[2017-06-22 08:36] LABS: CALCIUM, SERUM 7.9 mg/dL (8.5-10.1); CREATININE 0.5 mg/dL (0.6-1.3); MAGNESIUM 1.9 mg/dL (1.8-2.4)
[2017-06-22] MEDS: BOOST FOOD- BERRY 237 ML BOX PO SCH ×2 (08:41→17:49)
[2017-06-22] MEDS: PANTOPRAZOLE 40 MG VIAL IV SCH ×2 (08:42→17:49)
[2017-06-22] MEDS: DRONABINOL (2.5 MG) 2.5 MG CAPSULE PO SCH ×2 (08:42→17:00)
[2017-06-22] MEDS: DOCUSATE SODIUM LIQ 100 MG/10 ML UDC PO SCH ×2 (08:42→17:00)
[2017-06-22] MEDS: LACTOBACILLUS RHAMNOSUS GG 1 EACH CAP.SPRINK PO SCH ×2 (08:42→17:00)
[2017-06-22] MEDS: MEGESTROL ACETATE SUSP 400 MG/10 ML UDC PO SCH ×2 (08:42→17:50)
[2017-06-22] MEDS: VENLAFAXINE XR 37.5 MG CAP.SR.24H PO SCH (08:42)
[2017-06-22] MEDS: MULTIVITAMINS,THERAGRAN 1 UDTAB TABLET PO SCH (08:42)
--- NOTE | 2017-06-22 08:58 | NUR ---
REPORT GIVEN TO GIA FOR JOVANA.
--- NOTE | 2017-06-22 09:00 | NUR ---
RN NOTES PT IS RESTING IN BED EATING BREAKFAST. NO SIGNS OF DISTRESS OR PAIN NOTED. SAFETY MEASURES ARE IN PLACE, CALL LIGHT IS IN REACH. WILL CONTINUE TO MONITOR.
[2017-06-22 09:04] LABS: POTASSIUM 3.9 mmol/L (3.5-5.1)
[2017-06-22] MEDS: Potassium Chloride 20 MEQ in IV NS 0.9% 1,000 ML IV PRN (09:09)
[2017-06-22 16:00] VITALS: BP 129/69
--- NOTE | 2017-06-22 18:48 | NUR ---
RN NOTES PT IS SITTING UP IN BED, RESTING COMFORTABLY. PT ON 2L O2 FOR COMFORT, RESPIRATIONS ARE EVEN AND UNLABORED. INDU MIDLINE INTACT AND RUNNING NS + 20MEQ KCL @ 75ML/HR. PT REFUSED MEDICATIONS AND HAD LITTLE APPETITE AT MEAL TIMES. JALLOH CATHETER IS INTACT AND DRAINING. PT KEPT CLEAN AND DRY, WOUND CARE PROVIDED. SAFETY MEASURES ARE IN PLACE, CALL LIGHT IS IN REACH. WILL ENDORSE TO CASH APPLICATIONS SPECIALIST RN FOR CONTINUITY OF CARE.
[2017-06-22 20:00] VITALS: BP 119/68
[2017-06-22] MEDS: MIRTAZAPINE 15 MG TABLET PO SCH (21:41)
--- NOTE | 2017-06-22 21:45 | NUR ---
MS RN NOTE: PATIENT REFUSED REMERON MEDICATION. EXPLAINED RISK AND BENEFITS, BUT PATIENT CONTINUES TO REFUSE MEDICATION. WILL CONTINUE TO MONITOR.
[2017-06-23] MEDS: IPRATROPIUM NEB FS 0.5 MG/2.5 ML AMPUL.NEB NEB SCH ×6 (02:24→23:30)
[2017-06-23] MEDS: ALBUTEROL HALF STRENGTH 1.25 MG/3 ML VIAL.NEB NEB SCH ×6 (02:24→23:30)
--- NOTE | 2017-06-23 07:15 | NUR ---
RN NOTES PT IS LAYING DOWN IN BED, SLEEPING. PT ON 2L O2, RESPIRATIONS ARE EVEN AND UNLABORED. ALFRED MIDLINE INTACT AND PATENT, RUNNING NS + 20 MEQ KCL @ 75 ML/HR. JALLOH CATHETER IS INTACT AND DRAINING. SAFETY MEASURES ARE IN PLACE, CALL LIGHT IS IN REACH. WILL CONTINUE TO MONITOR.
[2017-06-23 08:00] VITALS: BP 137/82
[2017-06-23] MEDS: BOOST FOOD- BERRY 237 ML BOX PO SCH ×2 (08:14→17:15)
[2017-06-23] MEDS: PANTOPRAZOLE 40 MG VIAL IV SCH ×2 (08:14→17:15)
[2017-06-23] MEDS: LACTOBACILLUS RHAMNOSUS GG 1 EACH CAP.SPRINK PO SCH ×2 (08:14→17:00)
[2017-06-23] MEDS: DOCUSATE SODIUM LIQ 100 MG/10 ML UDC PO SCH ×2 (08:14→17:00)
[2017-06-23] MEDS: MEGESTROL ACETATE SUSP 400 MG/10 ML UDC PO SCH ×2 (08:14→17:00)
[2017-06-23] MEDS: VENLAFAXINE XR 37.5 MG CAP.SR.24H PO SCH (08:14)
[2017-06-23] MEDS: MULTIVITAMINS,THERAGRAN 1 UDTAB TABLET PO SCH (08:14)
[2017-06-23] MEDS: DRONABINOL (2.5 MG) 2.5 MG CAPSULE PO SCH ×2 (08:14→17:00)
--- NOTE | 2017-06-23 09:00 | NUR ---
RN NOTES PT WAS EDUCATED ON THE NEED OF HAVING AN NG TUBE PLACED TO PROVIDE ADEQUATE NUTRITION. PT REFUSED PLACEMENT OF NG TUBE.
[2017-06-23] MEDS: Potassium Chloride 20 MEQ in IV NS 0.9% 1,000 ML IV PRN (13:22)
[2017-06-23 16:00] VITALS: BP 134/76
[2017-06-23 16:14] VITALS: BP 134/76
--- NOTE | 2017-06-23 18:45 | NUR ---
RN NOTES PT IS SITTING UP IN BED, RESTING COMFORTABLY. IV ON ALFRED MIDLINE INTACT AND RUNNING NS +20MEQ KCL AT 75ML/HR. PT REFUSED TO TAKE ORAL MEDICATIONS. JALLOH CATHETER IS INTACT AND DRAINING. FAMILY BROUGHT SOUP FOR PT AND SHE WAS ABLE TO EAT, APPETITE HAS INCREASED. SAFETY MEASURES ARE IN PLACE, CALL LIGHT IS IN REACH. WILL ENDORSE TO BIOMETRIC SCREENER RN FOR CONTINUITY OF CARE.
[2017-06-23 20:00] VITALS: BP 111/66
[2017-06-23] MEDS: MIRTAZAPINE 15 MG TABLET PO SCH (21:42)
--- NOTE | 2017-06-23 21:42 | NUR ---
PT REFUSED TAKING REMERON. RISKS VS. BENEFITS WERE EXPLAINED TO THE PT X3.
[2017-06-24] MEDS: Potassium Chloride 20 MEQ in IV NS 0.9% 1,000 ML IV PRN (02:03)
--- NOTE | 2017-06-24 03:53 | NUR ---
RN NOTE; RECEIVED PT IN BED AWAKE AND RESPONSIVE. OX1. BREATHING EVENLY. NO SOB. NAD .SKIN WARM AND DRY. NO C/O PAIN OR DISCOMFORT. F/C IN PLACE. DRAINING CLEAR YELLOW URINE. OFFERED FOOD/ FLUID WHICH REFUSED BY PT. NEEDS MET, BED LOW LOCKED. CALL LIGHT WITHIN REACH. WILL CONT TO MONITOR,
[2017-06-24] MEDS: ALBUTEROL HALF STRENGTH 1.25 MG/3 ML VIAL.NEB NEB SCH ×4 (04:20→16:04)
[2017-06-24] MEDS: IPRATROPIUM NEB FS 0.5 MG/2.5 ML AMPUL.NEB NEB SCH ×4 (04:20→16:04)
--- NOTE | 2017-06-24 06:56 | NUR ---
PT IN BED. RESTING COMFORTABLY. BREATHING EVENLY. NO SOB. NO S/S OF PAIN OR DISCOMFORT. NO ACUTE EVENT DURING THE NIGHT. CLEANED AND DRIED, REPOSITIONED ROUTINELY. CALL LIGHT WITHIN REACH . WILL CONT TO MONITOR AND WILL ENDORSE TO AM SHIFT FOR JOVANA.
--- NOTE | 2017-06-24 07:15 | NUR ---
RN NOTES PT IS LAYING DOWN IN BED, SLEEPING. PT ON 4L O2, RESPIRATIONS ARE EVEN AND UNLABORED. ALFRED MIDLINE INTACT AND RUNNING NS + 20 MEQ KCL @ 75ML/HR. JALLOH CATHETER IS INTACT AND DRAINING. SAFETY MEASURES ARE IN PLACE, CALL LIGHT IS IN REACH. WILL CONTINUE TO MONITOR.
[2017-06-24 08:00] VITALS: BP 112/61
[2017-06-24] MEDS: BOOST FOOD- BERRY 237 ML BOX PO SCH ×2 (08:42→16:26)
[2017-06-24] MEDS: PANTOPRAZOLE 40 MG VIAL IV SCH ×2 (08:42→16:29)
[2017-06-24] MEDS: VENLAFAXINE XR 37.5 MG CAP.SR.24H PO SCH (08:49)
[2017-06-24] MEDS: MEGESTROL ACETATE SUSP 400 MG/10 ML UDC PO SCH ×2 (08:49→16:29)
[2017-06-24] MEDS: MULTIVITAMINS,THERAGRAN 1 UDTAB TABLET PO SCH (08:49)
[2017-06-24] MEDS: LACTOBACILLUS RHAMNOSUS GG 1 EACH CAP.SPRINK PO SCH ×2 (08:49→16:28)
[2017-06-24] MEDS: DRONABINOL (2.5 MG) 2.5 MG CAPSULE PO SCH ×2 (08:49→16:28)
[2017-06-24] MEDS: DOCUSATE SODIUM LIQ 100 MG/10 ML UDC PO SCH ×2 (08:49→16:28)
[2017-06-24 16:00] VITALS: BP 112/67
[2017-06-24 16:05] VITALS: BP 112/67
--- NOTE | 2017-06-24 19:20 | NUR ---
RN NOTES PT WAS DISCHARGED TO [facility] IN STABLE CONDITION. DISCHARGE PAPERS WERE GIVEN AND BELONGINGS WERE RETURNED. IV AND JALLOH CATHETER WERE REMOVED. REPORT WAS GIVEN TO NURSE AT [facility]. PT WAS PICKED UP BY [facility], VITAL SIGNS WERE STABLE. FAMILY MADE AWARE OF TRANSFER.
== END 2017-06-24 19:10 | DRG 137 ==
LOC: ER 21:11 → TELE 22:48 → MED 06-06 09:24 → TELE 06-09 10:07 → MED 06-11 12:23 → TELE-TD 06-14 12:13 → TELE1 06-16 17:27 → MEDSG1 06-17 10:58 → MEDSG2 06-17 11:27
PROVIDERS: ADMIT Nurse Practitioner Acute Care; ATTEND Nurse Practitioner Acute Care
PROC: 05H533Z Insertion of Infusion Device into Right Subclavian Vein, Percutaneous Approach (ICD-10-PCS; principal; 2017-06-10)
DX: J69.0 Pneumonitis due to inhalation of food and vomit (principal); J96.01 Acute respiratory failure with hypoxia; E43 Unspecified severe protein-calorie malnutrition; G92 Toxic encephalopathy; N17.9 Acute kidney failure, unspecified; R64 Cachexia; J90 Pleural effusion, not elsewhere classified; F33.3 Major depressive disorder, recurrent, severe with psychotic symptoms; E87.2 Acidosis; E86.0 Dehydration; N13.6 Pyonephrosis; E11.51 Type 2 diabetes mellitus with diabetic peripheral angiopathy without gangrene; E87.6 Hypokalemia; I10 Essential (primary) hypertension; F41.9 Anxiety disorder, unspecified; Z87.891 Personal history of nicotine dependence; N39.0 Urinary tract infection, site not specified; M81.0 Age-related osteoporosis without current pathological fracture; D64.9 Anemia, unspecified; E11.59 Type 2 diabetes mellitus with other circulatory complications; F50.9 Eating disorder, unspecified; N31.9 Neuromuscular dysfunction of bladder, unspecified; Z89.411 Acquired absence of right great toe; Z91.5 Personal history of self-harm; K56.41 Fecal impaction; R33.9 Retention of urine, unspecified; R62.7 Adult failure to thrive; Z68.1 Body mass index [BMI] 19.9 or less, adult; M62.50 Muscle wasting and atrophy, not elsewhere classified, unspecified site; K21.0 Gastro-esophageal reflux disease with esophagitis; E88.09 Other disorders of plasma-protein metabolism, not elsewhere classified; B95.2 Enterococcus as the cause of diseases classified elsewhere; F43.10 Post-traumatic stress disorder, unspecified; J98.11 Atelectasis; D72.829 Elevated white blood cell count, unspecified
CPT/HCPCS: 36415; 36569; 36600; 71010-TC; 80048-TC; 80061-TC; 80076-TC; 80202-TC; 81000-TC; 82140-TC; 82272-TC; 82803-TC; 83605-TC; 83690-TC; 83735-TC; 84100-TC; 84443-TC; 84484-TC; 85025-TC; 85730-TC; 87040-TC; 87081-TC; 87086-TC; 87186-TC; 87400; 92526; 92611-TC; 94799-TC; 97110-TC; 97116-TC; 97530-TC; A4606; C9113; J0696; J2543; J3370; J3475; J3480; J3490; J7030; J7060; Q0167; Z7610

== ENCOUNTER 2017-07-09 11:40 | Inpatient (IN) | payer OTHER ==
[~2017-07-09] VITALS: Ht 157.5 cm; Wt 36.3 kg
[~2017-07-09 11:40] MED LIST: ACET325T53 PO; DOCU50LI PO; DOXY100T2 PO; DRON2.5C3 PO; MEGE400O4 PO; MIRT15TA PO; VENL37.55 PO; [UNRECOGNIZED DRUG - OTHER] PO
[2017-07-09] MEDS ORDERED: IV NS 0.9% 1,000 ML BAG IV ONE (13:00)
[2017-07-09] MEDS ORDERED: ONDANSETRON HCL/PF 4 MG/2 ML VIAL IVP ONE (13:00)
[2017-07-09] MEDS ORDERED: DRON5CAP2 PO (13:21)
[2017-07-09] MEDS ORDERED: MEGE400O4 PO (13:21)
[2017-07-09] MEDS ORDERED: IPRA3AMP IH (13:21)
[2017-07-09] MEDS ORDERED: DOCU-270 PO (13:21)
[2017-07-09] MEDS ORDERED: ASCO500T9 PO (13:21)
[2017-07-09] MEDS ORDERED: SACC250C PO (13:21)
[2017-07-09] MEDS ORDERED: MULT-659 PO (13:21)
[2017-07-09] MEDS ORDERED: NUTR237L18 PO (13:21)
[2017-07-09] MEDS ORDERED: VENL75CA56 PO (13:21)
[2017-07-09] MEDS ORDERED: ACET-868 PO (13:21)
[2017-07-09] MEDS ORDERED: ONDANSETRON HCL/PF 4 MG/2 ML VIAL ONE (13:38)
[2017-07-09 13:52] LABS: BASOPHILS % (AUTO) 0.3 % (0.0-2.0); EOSINOPHILS % (AUTO) 0.1 % (0.0-6.0); HEMATOCRIT 27 % (33-45); HEMOGLOBIN 9.1 g/dL (11.5-14.8); MEAN CORPUSCULAR HEMOGLOBIN 28 PG (26.0-33.0); MEAN CORPUSCULAR HGB CONC 34 g/dl (31.0-36.0); MEAN CORPUSCULAR VOLUME 83 fL (82-100); MONOCYTES # (AUTO) 0.2 /CMM (0.1-1.30); MONOCYTES % (AUTO) 3.7 % (2.0-12.0); NEUTROPHILS # (AUTO) 4.1 /CMM (1.8-8.9); NEUTROPHILS % (AUTO) 76.9 % (43.0-81.0); PLATELET COUNT (AUTO) 461 /CMM (150-450); RDW COEFFICIENT OF VARIATION 15.3 (11.5-15.0); RED BLOOD CELL COUNT(AUTO) 3.27 MIL/uL (4.0-5.2); WHITE BLOOD COUNT (AUTO) 5.3 K/uL (4.3-11.0)
[2017-07-09 14:11] LABS: ALANINE AMINOTRANSFERASE 12 U/L (12-78); ALBUMIN 1.9 g/dL (3.4-5.0); ALKALINE PHOSPHATASE 84 U/L (46-116); ASPARTATE AMINOTRANSFERASE 20 U/L (15-37); BILIRUBIN,DIRECT 0.1 mg/dL (0.0-0.2); BILIRUBIN,TOTAL 0.3 mg/dL (0.2-1.0); CALCIUM, SERUM 8.4 mg/dL (8.5-10.1); CARBON DIOXIDE 28 mmol/L (21-32); CHLORIDE 107 mmol/L (98-107); CREATININE 0.9 mg/dL (0.6-1.3); GLUCOSE 136 mg/dL (74-106); LIPASE 50 U/L (73-393); SODIUM SERUM 141 mmol/L (136-145); TOTAL PROTEIN, SERUM 7.5 g/dL (6.4-8.2); UREA NITROGEN, BLOOD 29 mg/dL (7-18)
[2017-07-09 14:13] LABS: TROPONIN I < 0.017 ng/mL (0.00-0.056)
[2017-07-09] MEDS ORDERED: ONDANSETRON HCL/PF 4 MG/2 ML VIAL IVP PRN (15:30)
[2017-07-09] MEDS ORDERED: ZOLPIDEM TARTRATE 5 MG TABLET PO PRN (15:30)
[2017-07-09] MEDS ORDERED: ACETAMINOPHEN 325 MG TABLET PO PRN ×2 (15:30)
[2017-07-09] MEDS ORDERED: HYDROCODONE/APAP 5/325MG 1 EACH TABLET PO PRN (15:30)
[2017-07-09] MEDS ORDERED: Z GUARD REMEDY 2 OZ OINT TP PRN (15:30)
[2017-07-09] MEDS ORDERED: MAGNESIUM HYDROXIDE 30 ML UDC PO PRN (15:30)
[2017-07-09] MEDS ORDERED: MAG HYDROX/AL HYDROX/SIMETH 30 ML UDC PO PRN (15:30)
[2017-07-09 16:00] VITALS: BP 123/80
[2017-07-09] MEDS: DRONABINOL (2.5 MG) 2.5 MG CAPSULE PO SCH ×2 (16:57→17:00)
[2017-07-09] MEDS: DOCUSATE SODIUM 100 MG CAPSULE PO SCH ×2 (16:57→17:00)
[2017-07-09] MEDS: MEGESTROL ACETATE SUSP 400 MG/10 ML UDC PO SCH ×2 (16:57→17:00)
[2017-07-09] MEDS: RENAL NOVASOURCE (8OZ) 1 EA BOX PO SCH (19:48)
[2017-07-09 20:00] VITALS: BP 112/71
[2017-07-09] MEDS: VENLAFAXINE XR 75 MG CAP.SR.24H PO SCH (22:23)
[2017-07-10 06:29] LABS: BASOPHILS % (AUTO) 0.2 % (0.0-2.0); EOSINOPHILS % (AUTO) 0.4 % (0.0-6.0); HEMATOCRIT 24 % (33-45); HEMOGLOBIN 8.1 g/dL (11.5-14.8); LYMPHOCYTES # (AUTO) 1.1 /CMM (0.8-4.8); LYMPHOCYTES % (AUTO) 22.1 % (20.0-44.0); MEAN CORPUSCULAR HEMOGLOBIN 28 PG (26.0-33.0); MEAN CORPUSCULAR HGB CONC 34 g/dl (31.0-36.0); MEAN CORPUSCULAR VOLUME 83 fL (82-100); MONOCYTES # (AUTO) 0.3 /CMM (0.1-1.30); MONOCYTES % (AUTO) 5.3 % (2.0-12.0); NEUTROPHILS # (AUTO) 3.5 /CMM (1.8-8.9); PLATELET COUNT (AUTO) 385 /CMM (150-450); RDW COEFFICIENT OF VARIATION 14.7 (11.5-15.0); RED BLOOD CELL COUNT(AUTO) 2.86 MIL/uL (4.0-5.2); WHITE BLOOD COUNT (AUTO) 4.8 K/uL (4.3-11.0)
[2017-07-10 06:37] LABS: CALCIUM, SERUM 7.8 mg/dL (8.5-10.1); CREATININE 0.7 mg/dL (0.6-1.3); MAGNESIUM 1.9 mg/dL (1.8-2.4); PHOSPHORUS 2.1 mg/dL (2.5-4.9); POTASSIUM 4.7 mmol/L (3.5-5.1)
[2017-07-10 06:45] LABS: THYROID STIMULATING HORMONE 1.621 uIU/mL (0.358-3.74)
[2017-07-10 08:00] VITALS: BP 127/77
[2017-07-10] MEDS: DOCUSATE SODIUM 100 MG CAPSULE PO SCH ×3 (08:38→17:00)
[2017-07-10] MEDS: ASCORBIC ACID 500 MG TABLET PO SCH ×2 (08:38→08:46)
[2017-07-10] MEDS: MEGESTROL ACETATE SUSP 400 MG/10 ML UDC PO SCH ×3 (08:38→17:00)
[2017-07-10] MEDS: DRONABINOL (2.5 MG) 2.5 MG CAPSULE PO SCH ×3 (08:38→17:00)
[2017-07-10] MEDS: RENAL NOVASOURCE (8OZ) 1 EA BOX PO SCH ×3 (08:39→17:09)
[2017-07-10 16:00] VITALS: BP 131/76
[2017-07-10] MEDS ORDERED: NEUTRA PHOS 1 POWD.PACKET NG ONE (16:30)
[2017-07-10] MEDS: HYDROGEL DRESSING 90 GM TUBE TP PRN ×2 (17:22→18:03)
[2017-07-10] MEDS: HYDROGEL DRESSING 90 GM TUBE TP SCH (18:09)
[2017-07-10] MEDS: Potassium Chloride 20 MEQ in IV D5 LR 1,000 ML IV PRN (18:10)
[2017-07-10 20:00] VITALS: BP 137/74
[2017-07-10] MEDS: VENLAFAXINE XR 75 MG CAP.SR.24H PO SCH (22:00)
[2017-07-11 06:19] LABS: BASOPHILS % (AUTO) 0.2 % (0.0-2.0); EOSINOPHILS % (AUTO) 0.5 % (0.0-6.0); HEMATOCRIT 25 % (33-45); HEMOGLOBIN 8.4 g/dL (11.5-14.8); LYMPHOCYTES # (AUTO) 1.1 /CMM (0.8-4.8); LYMPHOCYTES % (AUTO) 22.5 % (20.0-44.0); MEAN CORPUSCULAR HEMOGLOBIN 28 PG (26.0-33.0); MEAN CORPUSCULAR HGB CONC 34 g/dl (31.0-36.0); MEAN CORPUSCULAR VOLUME 83 fL (82-100); MONOCYTES # (AUTO) 0.2 /CMM (0.1-1.30); MONOCYTES % (AUTO) 3.9 % (2.0-12.0); NEUTROPHILS # (AUTO) 3.5 /CMM (1.8-8.9); NEUTROPHILS % (AUTO) 72.9 % (43.0-81.0); PLATELET COUNT (AUTO) 360 /CMM (150-450); RDW COEFFICIENT OF VARIATION 15.1 (11.5-15.0); RED BLOOD CELL COUNT(AUTO) 2.99 MIL/uL (4.0-5.2); WHITE BLOOD COUNT (AUTO) 4.8 K/uL (4.3-11.0)
[2017-07-11 07:36] LABS: CREATININE 0.6 mg/dL (0.6-1.3); PHOSPHORUS 2.1 mg/dL (2.5-4.9); POTASSIUM 5.2 mmol/L (3.5-5.1)
[2017-07-11 08:00] VITALS: BP 119/72
[2017-07-11] MEDS: MEGESTROL ACETATE SUSP 400 MG/10 ML UDC PO SCH ×2 (09:00→17:26)
[2017-07-11] MEDS: DRONABINOL (2.5 MG) 2.5 MG CAPSULE PO SCH ×2 (09:00→17:26)
[2017-07-11] MEDS: RENAL NOVASOURCE (8OZ) 1 EA BOX PO SCH ×3 (09:00→17:27)
[2017-07-11] MEDS: ASCORBIC ACID 500 MG TABLET PO SCH (09:00)
[2017-07-11] MEDS: DOCUSATE SODIUM 100 MG CAPSULE PO SCH ×2 (09:00→17:26)
[2017-07-11] MEDS: HYDROGEL DRESSING 90 GM TUBE TP PRN (09:13)
[2017-07-11] MEDS: HYDROGEL DRESSING 90 GM TUBE TP SCH (09:18)
[2017-07-11 10:03] LABS: MAGNESIUM 1.8 mg/dL (1.8-2.4)
[2017-07-11 10:34] LABS: BAND % (MANUAL) 6 % (0.0-5.0); LYMPHOCYTES % (MANUAL) 12 % (16-48); MONOCYTES % (MANUAL) 1 % (0-11.0); NEUTROPHILS % (MANUAL) 81 (42-76)
[2017-07-11] MEDS ORDERED: K PHOS NEUTRAL 250 MG TABLET PO ONE (12:00)
[2017-07-11 13:18] LABS: CALCIUM, SERUM 8.3 mg/dL (8.5-10.1)
[2017-07-11] MEDS: OLANZAPINE 5 MG/TAB.RAPDIS PO SCH ×2 (14:48→21:53)
[2017-07-11 16:00] VITALS: BP 115/66
[2017-07-11] MEDS: Potassium Chloride 20 MEQ in IV D5 LR 1,000 ML IV PRN (17:25)
[2017-07-11 20:00] VITALS: BP 103/61
[2017-07-11] MEDS: IV D5 LR 1,000 ML IV PRN (21:59)
[2017-07-12 08:00] VITALS: BP 115/64
[2017-07-12] MEDS: ASCORBIC ACID 500 MG TABLET PO SCH (08:59)
[2017-07-12] MEDS: MEGESTROL ACETATE SUSP 400 MG/10 ML UDC PO SCH ×2 (08:59→16:22)
[2017-07-12] MEDS: DOCUSATE SODIUM 100 MG CAPSULE PO SCH ×2 (08:59→16:22)
[2017-07-12] MEDS: OLANZAPINE 5 MG/TAB.RAPDIS PO SCH (08:59)
[2017-07-12] MEDS: DRONABINOL (2.5 MG) 2.5 MG CAPSULE PO SCH ×2 (09:00→16:22)
[2017-07-12] MEDS ORDERED: VENLAFAXINE XR 75 MG CAP.SR.24H PO SCH (09:00)
[2017-07-12] MEDS: HYDROGEL DRESSING 90 GM TUBE TP SCH (09:01)
[2017-07-12] MEDS: RENAL NOVASOURCE (8OZ) 1 EA BOX PO SCH ×3 (09:08→16:23)
[2017-07-12] MEDS ORDERED: OLAN5TAB6 PO (10:50)
[2017-07-12] MEDS ORDERED: NEUTRA PHOS 1 POWD.PACKET PO ONE (11:30)
[2017-07-12 12:00] VITALS: BP 126/77
[2017-07-12] MEDS ORDERED: IV NS 0.9% 1,000 ML IV PRN (14:30)
[2017-07-12 16:00] VITALS: BP_SYST 126; BP_SYST 139; BP_DIAS 77; BP_DIAS 79
[2017-07-12] MEDS: IV D5 LR 1,000 ML IV PRN (16:13)
== END 2017-07-12 19:40 | DRG 421 ==
LOC: ER 11:43 → MEDSG2 14:21 → MED 07-11 06:38
DX: R62.7 Adult failure to thrive (principal); L89.154 Pressure ulcer of sacral region, stage 4; E44.0 Moderate protein-calorie malnutrition; E11.51 Type 2 diabetes mellitus with diabetic peripheral angiopathy without gangrene; D64.9 Anemia, unspecified; I10 Essential (primary) hypertension; F32.9 Major depressive disorder, single episode, unspecified; M81.0 Age-related osteoporosis without current pathological fracture; F41.0 Panic disorder [episodic paroxysmal anxiety]; Z87.891 Personal history of nicotine dependence; Z68.1 Body mass index [BMI] 19.9 or less, adult; L98.8 Other specified disorders of the skin and subcutaneous tissue; F50.9 Eating disorder, unspecified; Z89.411 Acquired absence of right great toe
CPT/HCPCS: 36415; 74021; 80048-TC; 80061-TC; 80076-TC; 83690-TC; 83735-TC; 84100-TC; 84134-TC; 84443-TC; 84484-TC; 85025-TC; 87081-TC; A4606; A6248; J2405; J3480; J3490; J7030; Q0167; Z7610